=== PATIENT | female | born 1950 | race Caucasian/White ===

== ENCOUNTER 2020-11-02 13:37 | Outpatient (REF) | payer OTHER, SELFPAY ==
--- NOTE | 2020-11-02 13:40 | CT_ITS ---
EXAMINATION: CT CHEST WITHOUT CONTRAST CLINICAL INFORMATION: Pulmonary nodules. COMPARISON: CT chest 05/10/2020. TECHNIQUE: Multidetector volumetric CT imaging of the chest was done. Axial MIP volume rendering provided. Sagittal and coronal reformatted images were obtained. This CT examination was performed using dose optimization techniques as appropriate, variously including the following: *Automated exposure control *Adjustment of mA and/or kV according to patient size (this includes techniques or standardized protocols for targeted exams where dose is matched to indication/reason for exam; i.e. extremities or head) *Use of iterative reconstruction technique DLP: 112 mGy-cm FINDINGS: TEST SPECIALIST: Unremarkable. LUNGS: There is diffuse centrilobular emphysema without acute pneumonic process. There is a 5 mm noncalcified nodule right upper lobe axial image 139/6, a bilobed 6 mm noncalcified nodule right upper lobe axial image 97/6, 2 mm right upper lobe nodule axial image 107/6, 3 mm nodule right upper lobe axial image 133/6 are all stable. There are atelectatic changes right posterior basal and right anterobasal segments. No new nodule seen. MEDIASTINUM: The thyroid lobes are symmetrical and normal. The central trachea and the bronchi are widely patent. There are multiple small benign pretracheal and precarinal lymph nodes with a maximum short axis measurement of 7 mm and less. There is atherosclerotic calcification of thoracic aorta without aneurysmal dilatation. No pericardial effusion seen. PLEURA: There is no pleural effusion. No pleural mass or thickening. AXILLA: No lymphadenopathy. UPPER ABDOMEN: Visualized liver, spleen and pancreas unremarkable. There is a solitary gallstone. OSSEOUS STRUCTURES: No lytic or sclerotic process seen. There is mild spondylosis lumbar spine. CT/CT chest wo con IMPRESSION: Centrilobular emphysema and multiple pulmonary nodules are stable compared to previous CT chest 05/10/2020. No new nodule seen. Gallstone.
== END 2020-11-02 13:38 | disposition home or self-care (01) ==
LOC: HO.CT 13:37
PROVIDERS: PCP Internal Medicine; Visit Provider Internal Medicine Pulmonary Disease
DX: R91.8 Other nonspecific abnormal finding of lung field (principal)
CPT/HCPCS: 71250

== ENCOUNTER → 2020-11-15 10:00 | Outpatient (BNVA) | payer OTHER, SELFPAY | PROVIDERS: PCP Internal Medicine; Visit Provider Internal Medicine Pulmonary Disease | DX: J44.9 Chronic obstructive pulmonary disease, unspecified (principal); R91.8 Other nonspecific abnormal finding of lung field; Z79.899 Other long term (current) drug therapy; Z99.81 Dependence on supplemental oxygen; Z87.891 Personal history of nicotine dependence | CPT/HCPCS: 99212 ==

== ENCOUNTER → 2021-03-08 11:33 | Outpatient (BNVA) | payer OTHER, SELFPAY | PROVIDERS: PCP Internal Medicine; Visit Provider Internal Medicine Pulmonary Disease | DX: J44.9 Chronic obstructive pulmonary disease, unspecified (principal); R91.8 Other nonspecific abnormal finding of lung field; Z99.81 Dependence on supplemental oxygen | CPT/HCPCS: 99212 ==

== ENCOUNTER → 2021-04-12 10:08 | Outpatient (BNVA) | payer OTHER, SELFPAY | PROVIDERS: PCP Internal Medicine; Visit Provider Internal Medicine Pulmonary Disease | DX: J44.9 Chronic obstructive pulmonary disease, unspecified (principal); R91.8 Other nonspecific abnormal finding of lung field; Z99.81 Dependence on supplemental oxygen | CPT/HCPCS: 99212 ==

== ENCOUNTER → 2021-06-18 10:59 | Outpatient (BNVA) | payer OTHER, SELFPAY | PROVIDERS: PCP Internal Medicine; Visit Provider Internal Medicine Pulmonary Disease | DX: J44.9 Chronic obstructive pulmonary disease, unspecified (principal); R91.8 Other nonspecific abnormal finding of lung field; Z99.81 Dependence on supplemental oxygen | CPT/HCPCS: 99212 ==

== ENCOUNTER → 2021-07-30 14:13 | Outpatient (BNVA) | payer MEDICARE, SELFPAY | PROVIDERS: PCP Nurse Practitioner Family; Visit Provider Internal Medicine Pulmonary Disease | DX: J44.9 Chronic obstructive pulmonary disease, unspecified (principal); R91.8 Other nonspecific abnormal finding of lung field; Z99.81 Dependence on supplemental oxygen | CPT/HCPCS: 99212 ==

== ENCOUNTER → 2021-08-13 10:15 | Outpatient (BNVA) | payer MEDICARE, SELFPAY | PROVIDERS: PCP Nurse Practitioner Family; Visit Provider Internal Medicine Pulmonary Disease | DX: R91.8 Other nonspecific abnormal finding of lung field (principal); J44.9 Chronic obstructive pulmonary disease, unspecified; Z99.81 Dependence on supplemental oxygen | CPT/HCPCS: 99212 ==

== ENCOUNTER → 2021-09-17 10:51 | Outpatient (BNVA) | payer MEDICARE, SELFPAY | PROVIDERS: PCP Nurse Practitioner Family; Visit Provider Internal Medicine Pulmonary Disease | DX: J44.9 Chronic obstructive pulmonary disease, unspecified (principal) | CPT/HCPCS: 99211 ==

== ENCOUNTER → 2021-10-17 09:57 | Outpatient (BNVA) | payer MEDICARE, SELFPAY | PROVIDERS: PCP Nurse Practitioner Family; Visit Provider Internal Medicine Pulmonary Disease | DX: J44.9 Chronic obstructive pulmonary disease, unspecified (principal); R91.8 Other nonspecific abnormal finding of lung field; Z99.81 Dependence on supplemental oxygen | CPT/HCPCS: 94618; 99212 ==

== ENCOUNTER 2021-11-15 10:10 | Outpatient (REF) | payer MEDICARE, SELFPAY ==
--- NOTE | ~2021-11-15 | CT_ITS ---
EXAMINATION: CT CHEST WITHOUT CONTRAST CLINICAL INFORMATION: Followup pulmonary nodules. COMPARISON: CT chest 11/02/2020. TECHNIQUE: Multidetector volumetric CT imaging of the chest was done. Axial MIP volume rendering provided. Sagittal and coronal reformatted images were obtained. This CT examination was performed using dose optimization techniques as appropriate, variously including the following: *Automated exposure control *Adjustment of mA and/or kV according to patient size (this includes techniques or standardized protocols for targeted exams where dose is matched to indication/reason for exam; i.e. extremities or head) *Use of iterative reconstruction technique DLP: 114 mGy-cm FINDINGS: AQUACULTURE PROGRAM DIRECTOR: Unremarkable chest exam. LUNGS: There are diffuse emphysematous changes of the lungs without any acute process. Scattered pulmonary nodules are seen. A triangular-shaped 2 mm nodule right lung apex image 53/5, subpleural 2 mm nodule right upper lobe image 48/6, 3 mm pleural-based nodule right upper lobe axial image 108/5, 6 mm nodule right upper lobe medially axial image 100/5. There is a 2 mm pleural-based nodule left upper lobe axial image 147/5, 2 mm nodule left upper lobe axial image 21/4 and a slightly punctate 1 mm nodule laterally at the same level in the left upper lobe. No additional nodules seen. MEDIASTINUM: The thyroid lobes are symmetric and normal. The central trachea and the bronchi are widely patent. The heart size and the great vessels are normal caliber. There are small shotty mediastinal lymph nodes seen. No pericardial effusion. PLEURA: There is no pleural effusion. No pleural mass or thickening. AXILLA: There are small shotty lymph nodes in the axilla with the largest lymph node measuring 8 mm. The chest wall is unremarkable. UPPER ABDOMEN: The visualized liver, spleen, pancreas, and bilateral adrenal glands are unremarkable. OSSEOUS STRUCTURES: Bone windows reveal no lytic or sclerotic process. There are degenerative disc changes and ventral spondylosis throughout the dorsal spine. CT/CT chest wo con IMPRESSION: Stable bilateral several pulmonary nodules. There are no new pulmonary nodules compared to last study 05/10/2020. Fleischner guidelines were followed.
== END 2021-11-15 10:11 | disposition home or self-care (01) ==
LOC: HO.CT 10:10
PROVIDERS: Visit Provider Internal Medicine Pulmonary Disease
DX: R91.8 Other nonspecific abnormal finding of lung field (principal)
CPT/HCPCS: 71250

== ENCOUNTER → 2022-01-28 13:41 | Outpatient (BNVA) | payer OTHER, SELFPAY | PROVIDERS: PCP Nurse Practitioner Family; Visit Provider Internal Medicine Pulmonary Disease | DX: J44.9 Chronic obstructive pulmonary disease, unspecified (principal); R91.8 Other nonspecific abnormal finding of lung field; Z99.81 Dependence on supplemental oxygen | CPT/HCPCS: 99212 ==

== ENCOUNTER → 2022-05-14 14:44 | Outpatient (BNVA) | payer OTHER, SELFPAY | PROVIDERS: PCP Nurse Practitioner Family; Visit Provider Internal Medicine Pulmonary Disease | DX: Z01.811 Encounter for preprocedural respiratory examination (principal); J44.9 Chronic obstructive pulmonary disease, unspecified; Z99.81 Dependence on supplemental oxygen | CPT/HCPCS: 99212 ==

== ENCOUNTER 2022-06-06 07:47 | Outpatient (REF) | payer OTHER, SELFPAY ==
--- NOTE | ~2022-06-06 | XR_ITS ---
EXAMINATION: XR SHOULDER, RIGHT CLINICAL INFORMATION: Pain. COMPARISON: None TECHNIQUE: Two views of the right shoulder. FINDINGS: No fracture or dislocation. The humeral head appears high with respect to the glenoid. Acromioclavicular joint appears slightly widened measuring 9 mm. There is degenerative change at the glenohumeral and acromioclavicular joints. There is a small undersurface acromial osteophyte. XR/XR shoulder RT min 2V IMPRESSION: High humeral head questionable for rotator cuff disease. Arthritis and question slightly widened acromioclavicular joint.
== END 2022-06-06 07:48 | disposition home or self-care (01) ==
LOC: HO.HOSX 07:47
PROVIDERS: Visit Provider Physician Assistant
DX: M12.811 Other specific arthropathies, not elsewhere classified, right shoulder (principal)
CPT/HCPCS: 73030; 99202

== ENCOUNTER → 2022-07-22 10:58 | Outpatient (BNVA) | payer OTHER, SELFPAY | PROVIDERS: PCP Nurse Practitioner Family; Visit Provider Internal Medicine Pulmonary Disease | DX: Z01.811 Encounter for preprocedural respiratory examination (principal); J44.9 Chronic obstructive pulmonary disease, unspecified; R91.8 Other nonspecific abnormal finding of lung field; Z99.81 Dependence on supplemental oxygen | CPT/HCPCS: 99212 ==

== ENCOUNTER 2023-04-21 11:44 | Outpatient (AMB) | payer OTHER, SELFPAY ==
--- NOTE | 2023-04-21 11:50 | MHC.OFFVIS ---
Intake Vital Signs 04/21/23 11:51 Height 5 ft Weight 114 lb 10.246 oz BMI 22.4 BP 138/62 Intake Visit Reasons: COPD Intake Note: ct was denied by insurance Allergies gabapentin [GABAPENTIN] Allergy (Unknown, Verified 04/21/23 11:51) UNKNOWN mirtazapine Allergy (Unknown, Verified 04/21/23 11:51) Unknown penicillin G Allergy (Unknown, Verified 04/21/23 11:51) Unknown pravastatin Allergy (Unknown, Verified 04/21/23 11:51) Unknown quetiapine [Seroquel] Allergy (Unknown, Verified 04/21/23 11:51) Unknown HPI COPD HPI Details 73-year-old lady, recent 55+ pack-year smoker, quit 2019, followed for underlying 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 She continues to use Anoro, albuterol MDI, theophylline 400, and duo nebs with good control of her underlying symptoms.? She denies recent exacerbations.? She is interested in pulmonary rehab. [facility] Medical History (Updated 06/06/22 @ 13:02 by Tristin Mireles PA-C) Fibromyalgia High blood pressure Stomach problems Surgical History (Updated 06/06/22 @ 11:08 by CLARY Barahona) H/O pelvic surgery History of shoulder surgery Social History (Updated 06/06/22 @ 11:07 by CLARY Barahona) Patient Tobacco Use Status: Former Tobacco user Years Smoked: 45 yrs Current occupational status: retired Review of Systems Const Denies daytime sleepiness, Denies excessive sweating, Denies fatigue, Denies fever(s), Denies lethargy, Denies malaise, Denies night sweats, Denies snoring and Denies weight loss Eyes Denies blurry vision and Denies itchy eyes ENT Denies nasal congestion, Denies post nasal drip, Denies sinus pain, Denies sinus pressure and Denies other ( Thrush) Card Denies chest pain, Denies pedal edema, Denies dyspnea, Denies orthopnea and Denies paroxysmal nocturnal dyspnea Resp Denies cough, Denies hemoptysis, Denies excessive phlegm production, Denies dyspnea, Denies snoring and Denies wheezing GI Denies abdominal pain and Denies heartburn Musc Denies myalgias, Denies arthralgias and Denies joint swelling Skin/Breast Denies rash Neuro Denies memory loss and Denies seizure-like activity Psych Denies abnormal sleep pattern, Denies anxiety and Denies memory loss Endo Denies excessive sweating, Denies fatigue and Denies heat intolerance Clement/Lymph Denies easy bruising Aller/Immun Denies itchy eyes, Denies seasonal rhinorrhea and Denies wheezing Physical Exam Vital Signs: Last Vital Signs BP 138/62 04/21/23 11:51 BMI result Body Mass Index 22.4 Const General: no acute distress and alert Nutritional Appearance: not obese Orientation/consciousness: Other orientation findings ( oriented) HEENT Head: Yes atraumatic Eyes General: appearance normal, both eyes and all related structures Sclerae: sclerae normal EOM: EOMs intact bilaterally Neck Neck: Yes supple Lymphatic: no lymphadenopathy noted Resp Effort & Inspection: normal respiratory effort and no use of accessory muscles Auscultation: clear to auscultation bilaterally Cardio Rate: regular rate Rhythm: regular rhythm Heart sounds: no gallops, no murmurs and no rubs Skin General skin exam: other ( warm) Extrem General: No clubbing, No cyanosis and No edema Assessment & Plan Assessment & Plan (1) Severe chronic obstructive pulmonary disease: Code(s): J44.9 - Chronic obstructive pulmonary disease, unspecified Plan: Reasonably well controlled on current regimen of Anoro, duo nebs, and albuterol MDI. Continue current regimen. Restart theophylline. Will obtain new PFT and referred to Pulmonary Rehab. (2) Supplemental oxygen dependent: Code(s): Z99.81 - Dependence on supplemental oxygen Plan: Continue supplemental oxygen to maintain O2 saturation of 88-93%. (3) Pulmonary nodules: Code(s): R91.8 - Other nonspecific abnormal finding of lung field Plan: Follow-up CT chest is ordered. Orders: Orders PFT pulmonary function test Today J44.9 - Chronic obstructive pulmonary disease, unspecified Pulmonary Rehab Today J44.9 - Chronic obstructive pulmonary disease, unspecified Medications: Changed From umeclidinium-vilanterol 62.5-25 mcg/actuation 1 ea PO DAILY J44.9 - Chronic obstructive pulmonary disease, unspecified To umeclidinium-vilanterol 62.5-25 mcg/actuation 1 ea PO DAILY 1 ea 6RF 30 days J44.9 - Chronic obstructive pulmonary disease, unspecified Refilled theophylline ER 400 mg PO DAILY 30 tabs 6RF J44.9 - Chronic obstructive pulmonary disease, unspecified ipratropium-albuterol 0.5 mg-3 mg(2.5 mg base)/3 mL 3 mL inhalation Q6H PRN 360 mL 6RF for wheezing J44.9 - Chronic obstructive pulmonary disease, unspecified Coding Level of Care Code Est Pt Level 4 (24221) Diagnoses Severe chronic obstructive pulmonary disease J44.9 Supplemental oxygen dependent Z99.81 Pulmonary nodules R91.8
[2023-04-21 11:51] VITALS: BP 138/62; BMI 22.4
== END 2023-04-21 12:10 | disposition home or self-care (01) ==
PROVIDERS: PCP Nurse Practitioner Family; Visit Provider Internal Medicine Pulmonary Disease
DX: J44.9 Chronic obstructive pulmonary disease, unspecified (principal); Z99.81 Dependence on supplemental oxygen; R91.8 Other nonspecific abnormal finding of lung field
CPT/HCPCS: 99214

== ENCOUNTER → 2023-04-21 11:44 | Outpatient (BNVA) | payer OTHER, SELFPAY | PROVIDERS: Visit Provider Internal Medicine Pulmonary Disease | DX: J44.9 Chronic obstructive pulmonary disease, unspecified (principal); R91.8 Other nonspecific abnormal finding of lung field; Z79.899 Other long term (current) drug therapy; Z99.81 Dependence on supplemental oxygen | CPT/HCPCS: 99212 ==

== ENCOUNTER 2023-05-11 09:27 | Outpatient (REF) | payer OTHER, SELFPAY ==
--- NOTE | 2023-05-11 11:15 | PFT_ITS ---
INDICATION: COPD and pulmonary nodule. SPIROMETRY: The FEV1 to FVC of 51% with an FEV1 of 1.07 L which is 67% predicted and FVC of 2.1 L which is 84% predicted. No significant response to bronchodilators noted. Maximum voluntary ventilation 47% predicted. LUNG VOLUMES: Total lung capacity 101% predicted with a residual volume 119% predicted. DIFFUSION CAPACITY: DLCO of 56% predicted. COMPARISONS: None. INTERPRETATION: There is an obstructive ventilatory defect consistent with mild COPD. No significant response to bronchodilators noted. Moderate decrease in maximum voluntary ventilation secondary to deconditioning, also likely worsening dynamic inspiratory capacity. Lung volumes were the trend of air trapping secondary to the COPD and does also have moderate diffusion impairment secondary to likely emphysematous changes and other parenchymal lung conditions should be considered. Should also correct for hemoglobin. Clinical correlation warranted. MD SIOMARA Cao/MODAbena / [phone]
== END 2023-05-11 09:28 | disposition home or self-care (01) ==
LOC: HO.RESP 09:27
PROVIDERS: PCP Nurse Practitioner Family; Visit Provider Internal Medicine Pulmonary Disease
DX: J44.9 Chronic obstructive pulmonary disease, unspecified (principal)
CPT/HCPCS: 94010; 94727; 94729

== ENCOUNTER → 2023-05-11 11:15 | Outpatient (BNV) | payer OTHER, SELFPAY | PROVIDERS: PCP Nurse Practitioner Family; Visit Provider Hospitalist | DX: J44.9 Chronic obstructive pulmonary disease, unspecified (principal); R91.1 Solitary pulmonary nodule | CPT/HCPCS: 94060; 94727; 94729 ==

== ENCOUNTER 2023-07-06 10:03 | Outpatient (RCR) | payer OTHER, SELFPAY ==
[2023-07-06 10:35] VITALS: BP 124/64; PULSE 83
--- NOTE | 2023-07-06 14:00 | MHC.PR.IN ---
[address] [phone] F: [phone] Pulmonary Rehabilitation Individual Treatment Plan Sarah Newby is a 73 year old (F) who was referred to the Pulmonary Rehabilitation program by Emilio Toledo. This patient who has a primary diagnosis of COPD will begin pulmonary rehabilitation with monitored exercise and education to optimize both physical and social performance, autonomy, increase strength and endurance, and control dypsnea. The following information was gathered from the patient: Smoking History Current smoking status: Former Smoker Years smoked: 35 Last time smoked: Quit Date: 1 year ago Assistance with quitting needed: Past Medical History Medical History: Hypertension COPD Asthma Bronchitis Depression Anxiety Surgeries: Past Pulmonary Hospitalizations # of hospitalizations in the past year: # of ER vists due to breathing troubles in the past year: Current Pulmonary Medications albuterol neb Anora albuterol mdi 2 puffs Euthyrox 25 acetaminophen 500 atorvastatin amlodipine 5 pantobrazole 40 levothryroxin 125 pramipexole .5 theophylline Allergy History Allergies: Current Oxygen Use Supplemental Oxygen Device Used: Concentrator Cylinders Liter flow: 4-5Lpm How often: Only when I need it Pulmonary History Cough: No Sputum: Sleep device: No Other pulmonary devices: Peak flow meter: Nebulizer: Suction: Ventilator: Secretion clearance: PEP: Influenza vaccine: No: will do this year. Pneumonia vaccine: Patient Questionaire Scores MRC Dyspnea Scale (mRC): 0 CAT Score: 4 PHQ-9 Score: 0 Pulmonary Function Test and Vital Signs Pulmonary Function Test Date of PFT FVC Actual 2.10% FVC Predicted 2.48% FEV1 Actual 1.04% FEV1 Predicted 1.86% FEV1/FVC Actual 51% FEV1/FVC Predicted 76% DLCO 10.58 Vital Signs Heart Rate 83 Blood Pressure 124/64 SpO2 95% Respiratory Rate 18 Six Minute Walk Test Supplemental Oxygen O2 L/min: 2lpm FiO2: Resting Vitals SpO2: 94% BP: 124/64mmHg HR: 81 bpm Total Distance 1050 Number/ Time of Rests (sec) 1 15 seconds MARA 0 METS 2.45 SpO2 85 HR (bpm) 87 MPH 1.89 Meters/Minute 50 Post-walk Vitals SpO2: 94 BP: 122/64 HR: 89 Performance Observations Pt walked unassisted at a moderate pace. Pt started testing on RA at minute 3 sp02 dropped to 85%. Pt was placed on 1l then 2L to maintain spo2 >89. Pt continued walk at a moderate pace on 2lpm. RPD 0 Pulmonary Rehabilitation Plan Topic Problem Goal Plan Comment Education Knowledge deficit of disease self management strategies Ineffective control of dyspnea Verbalize adequate disease self-management skills Effective control of dyspnea Exacerbation prevention and management Home exercise program Respiratory medication Education initiated and ongoing. Hypoxia Hypoxemia Needs oxygen recommendation SpO2 >90 Appropriate portable oxygen system obtained Using oxygen as ordered Monitor oxygen saturation with rest and exercise Recommend appropriate liter flow to patient and physician Educate appropriate use of oxygen at rest and with activity Educate on oxygen safety Pt walked on RA. After 3 minutes sp02 85%. Pt placed on 2lpm for exercise. Psychosocial Depression Adequate treatment of depression Referral to MD for counseling Verbalizes improved psychosocial coping strategies & mechanisms Review screening results Benefits of exercise Relaxation techniques Coping techniques Stress management On medications currently Receiving counseling Recommend counseling Recommend f/u with MD for possible meds Activities of Daily Living Nutrition & Weight Management N/A met Tobacco Managment Difficulty remaining smoke free Ongoing tobacco use NA Patient verbalizes strategies to improve health related to smoking Dangers of smoking Benefits of quitting Triggers Coping strategies Withdrawal symptoms Assist with identifying aids to assist w/ cessation Discuss appropriate pharmacotherapy for cessation & MD follow-up Pt has 30 year pack hx. Pt stopped smoking 20 years ago Medication N/A, pt reports compliance w/ prescribed medications Adherence to prescribed medications Importance of medication compliance Medications purpose Will educate and review education on current respiratory meds and proper use. Inhaled Medication Purpose, side effects and technique needs review Correct technique/timing and care of inhaled medications Demo of MDI with spacer device DPI MDI with spacer device Nebulizer SMI Plan to teach/demonstrate and educate on respiratory meds. Secretion Management Ineffective airway clearance Pt has effective cough. Education initiated and on going on earl cough and breathing techniques. Exercise & Fitness Decreased strength & endurance Knowledge deficit of exercise guidelines & safety No regular exercise Pulmonary Rehab 2-3x/week Weight or resistance training 2-3x/week Aerobic Exercise: 30-60mins x 9 weeks Review benefits & core components of exercise program Review how to measure and monitor dyspnea level Review exercise safety guidelines Review frequency and duration of exercise Review exercise intensity MARA RPD 3-4/10 Review home exercise guidelines Diabetes Management Does patient have DM?: No Diabetes Type: Current Blood Glucose Level: Current A1C Level: Self Check: Pt is not a diabetic Patient's Goals and Concerns Pt states her goal from pulmonary rehab would be to walk uphill without losing her breath. . Ecommerce Manager Review I have reviewed the outcome assessment, treatment plan, goals, and problem list. The treatment plan and goals support the patient's needs and abilities, and thereby recommend that the exercise plan be completed as documented. Special precautions or modifications to the treatment plan include:
--- NOTE | 2023-08-12 07:13 | MHC.PR.DC ---
[address] [phone] F: [phone] Pulmonary Rehabilitation Discharge Sarah Newby is a 73 year old (F) who was referred to the Pulmonary Rehabilitation program by Emilio Toledo. This patient who has a primary diagnosis of COPD has completed sessions of the pulmonary rehabilitation program with monitored exercise and education to optimize both physical and social performance, autonomy, increase strength and endurance, and control dypsnea. They were evaluated on . Discharge summary and tests are below. Initial MRC Score: 0 Discharge MRC Score: Six Minute Walk Test Initial 6MWT Discharge 6MWT Supplemental Oxygen O2 L/min: 2lpm FiO2: O2 L/min: FiO2: Resting Vitals SpO2: 94% BP: 124/64mmHg HR: 81 bpm SpO2: % BP: mmHg HR: bpm Total Distance (ft) 1050 Number/ Time of Rests (sec) 1 15 seconds MARA 0 Walk Vitals SpO2: 85 HR: 87 SpO2: HR: Post-Walk Vitals SpO2: 94 BP: 122/64 HR: 89 SpO2: BP: HR: Performance Observations Pt walked unassisted at a moderate pace. Pt started testing on RA at minute 3 sp02 dropped to 85%. Pt was placed on 1l then 2L to maintain spo2 >89. Pt continued walk at a moderate pace on 2lpm. RPD 0 Exercise Assessment on : Pre-exercise Post-exercise SpO2 Heart Rate MARA METS Exercise Assessment on : Pre-exercise Post-exercise SpO2 Heart Rate MARA METS Exercise Assessment on : Pre-exercise Post-exercise SpO2 Heart Rate MARA METS Topic Education/Progress Progress Comments Education Hypoxia Current oxygen Use: Psychosocial PHQ-9 Score: 0 Activities of Daily Living Nutrition and Weight Managment Current weight: 114 BMI: Weight change: Tobacco Stages of Change: Tobacco Use: Cigerettes/Day: Any nicotine replacement: Any cessation medication: Smoking quit date: Smokeless tobacco use and amount: Medications Inhaled Medications Patient verbalizes correct technique of: MDI: DPI: SMI: NEBULIZER: Secretion Management Patient provides adequate return demonstration of: Controlled cough: Pozo cough: Acapella/ PEP Device: CPT: Sputum management: Exercise and Fitness Aerobic Exercise Frequency: Target heart range: Heart rate range: SpO2 Range: MARA RPD: Time (minutes): O2 use with exercise: Current HEP: Discharge Assessment: pt never participated in rehab Discharge Reason: Discharge Recommendation: :
== END 2023-08-12 07:13 | disposition home or self-care (01) ==
LOC: HO.PR 10:03
PROVIDERS: PCP Nurse Practitioner Family; Visit Provider Internal Medicine Pulmonary Disease
DX: J44.9 Chronic obstructive pulmonary disease, unspecified (principal)
CPT/HCPCS: 94625

== ENCOUNTER 2023-10-13 10:13 | Outpatient (AMB) | payer OTHER, SELFPAY ==
--- NOTE | 2023-10-13 10:07 | A.OFFVIS_ITS ---
Intake Vital Signs 10/13/23 10:20 Height 4 ft 11 in Weight 132 lb BMI 26.7 BP 136/70 Blood Pressure Location Rt brachial Pulse 101 H Pulse Source Pulse Oximeter Pulse Oximetry (%) 97 Oxygen Delivery Method Nasal Cannula Oxygen Flow Rate 3 Intake Visit Reasons: Recert o2/COPD Dock Guard Required: No Family Court Counsellor: Family Court Counsellor offered & declined Accompanied by: Self / Same As Patient Allergies gabapentin [GABAPENTIN] Allergy (Unknown, Verified 10/13/23 10:27) UNKNOWN mirtazapine Allergy (Unknown, Verified 10/13/23 10:27) Unknown penicillin G Allergy (Unknown, Verified 10/13/23 10:27) Unknown pravastatin Allergy (Unknown, Verified 10/13/23 10:27) Unknown quetiapine [Seroquel] Allergy (Unknown, Verified 10/13/23 10:27) Unknown Medication List - Last Reconciled 10/13/23 by Tessa Pritchett LPN acetaminophen 0 mg PO albuterol sulfate 90 mcg/actuation (Ventolin HFA) 2 puffs inhalation QID PRN amlodipine 5 mg PO DAILY atorvastatin 80 mg PO .every 48 clopidogrel 75 mg PO DAILY ipratropium-albuterol 0.5 mg-3 mg(2.5 mg base)/3 mL 3 mL inhalation Q6H PRN levothyroxine (Euthyrox) 0 mcg PO pramipexole 0 mg PO theophylline ER 400 mg PO DAILY umeclidinium-vilanterol 62.5-25 mcg/actuation 1 ea PO DAILY 30 days HPI Recert o2/COPD HPI Details Sarah is a pleasant 73 year old female, recent 55+ pack-year smoker, quit 2018, followed for underlying 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She is moderately controlled on Anoro, albuterol MDI, theophylline 400, and duo nebs. She reports using albuterol MDI/Duonebs 3-4 times per week with good effect.? She denies recent exacerbations.? She has attempted pulmonary rehab one time but is not interested in continuing. Today she presents for recertification for supplemental oxygen through [facility]. [facility] Medical History (Updated 06/06/22 @ 13:02 by Tristin Mireles PA-C) Fibromyalgia High blood pressure Stomach problems Surgical History (Updated 06/06/22 @ 11:08 by CLARY Barahona) History of shoulder surgery H/O pelvic surgery Social History (Updated 10/13/23 @ 10:30 by Tessa Pritchett LPN) Household Members: Family Household Members Other:: Son Patient Tobacco Use Status: Former Tobacco user Years Smoked: 35 Current occupational status: retired Review of Systems Const Denies chills, Denies excessive sweating, Denies fever(s), Denies headache(s) and Denies night sweats Eyes Denies dry eyes, Denies irritation and Denies itchy eyes ENT Reports Normal hearing present, Denies headache(s), Denies nasal congestion, Denies nasal discharge, Denies post nasal drip and Denies sore throat Card Denies chest pain, Denies chest pain at rest, Denies chest pain with activity, Denies claudication and Denies leg edema Resp Denies chest congestion, Denies excessive phlegm production, Denies pain on inspiration, Denies pain with cough and Denies stridor Musc Denies myalgias Neuro Reports Normal hearing present and Denies headache(s) Endo Denies excessive sweating Clement/Lymph Denies lymphadenopathy Aller/Immun Denies itchy eyes and Denies seasonal rhinorrhea Physical Exam Vital Signs: Last Vital Signs Pulse 101 H 10/13/23 10:20 BP 136/70 10/13/23 10:20 Pulse Ox 97 10/13/23 10:20 Oxygen Delivery Method Nasal Cannula 10/13/23 10:20 Oxygen Flow Rate 3 10/13/23 10:20 BMI result Body Mass Index 26.7 Const General: cooperative, comfortable, no acute distress, well developed and alert Orientation/consciousness: patient oriented x3 Limitations: no limitations HEENT Head: Yes normal to inspection, Yes normocephalic and Yes atraumatic Ears: hearing grossly normal bilaterally and external ears normal Eyes General: appearance normal, both eyes and all related structures Eyelids: Yes eyelids normal Sclerae: sclerae normal EOM: EOMs intact bilaterally Neck Neck: Yes normal visual inspection and Yes no lymphadenopathy Lymphatic: no lymphadenopathy noted Chest Chest palpation & inspection: normal inspection of the chest Resp Effort & Inspection: normal respiratory effort, able to speak in complete sentences, no audible wheezes, no cough, no stridor, not tachypneic, no tripod positioning and no use of accessory muscles Auscultation: wheezes expiratory wheezes and scattered wheezes Cardio Jugular venous distension: no JVD Rate: regular rate Rhythm: regular rhythm Skin Other: warm, dry General skin exam: no rashes or lesions noted Neuro General: patient oriented x3 Cranial nerves: Yes Normal hearing present Cognition (Neuro): normal cognition Gait exam (Neuro): Normal gait present Extrem General: Yes normal to inspection and Yes no pedal edema Psych Appearance: grossly normal and well kempt Speech and movement: Normal speech and movement present and Clear speech present Affect: normal affect Attitude: cooperative Thought process: Normal thought process present Thought content: Normal thought content present Insight: Good insight present (Psych) Judgement: Good judgement present (Psych) Office Procedures 6 Minute Walk Time:: 10:40 SPO2 % at rest: 95 Pulse at rest: 96 SPO2 % during excercise: 87 Pulse during excercise: 108 SPO2 % after excercise: 97 Pulse after excercise: 102 Distance in yards walked: 1,000 Kurt Score: 7 Supplemental Oxygen: Performance Observations:: Patient walked unassisted on level ground without oxygen. After approx 500 yards O2 saturation decreased to 87%. O2 pulsed applied at #3 and patient rested for approx 1 minute. O2 saturation increased to 94%. 6 minute walk completed with O2 on. Patient maintained O2 sat at 94%. Patient notes she does get short of breath with distance walking and uses O2 much of the time including overnight. Patient benefits from the use of supplemental O2. [id number] - 6 Minute Walk Assessment & Plan Assessment & Plan (1) Severe chronic obstructive pulmonary disease: Code(s): J44.9 - Chronic obstructive pulmonary disease, unspecified (2) Supplemental oxygen dependent: Code(s): Z99.81 - Dependence on supplemental oxygen Plan: Continue supplemental oxygen to maintain O2 saturation of 88-93%. (3) Pulmonary nodules: Code(s): R91.8 - Other nonspecific abnormal finding of lung field Plan Advised patient to continue current regimen. On exam, expiratory wheezing appreciated throughout. Will send in prednisone. Patient aware if symptoms do not change to call the office and if worsen seek emergent care. 6MWT performed, desaturated to 87% and patient continues to require 2-3 L pulsed supplemental oxygen. Will send recertification to [facility]. All questions were answered and patient is in agreement of plan. Will follow up with Dr. Toledo for regularly scheduled appointment or sooner if needed. Orders: Orders AMB 6 minute walk Today J44.9 - Chronic obstructive pulmonary disease, unspecified Medications: New prednisone 40 mg (2 x 20 mg) PO DAILY 10 tabs 0RF Coding Level of Care Code Est Pt Level 4 (08949) Diagnoses Severe chronic obstructive pulmonary disease J44.9 Supplemental oxygen dependent Z99.81 Pulmonary nodules R91.8 CPT Codes Coding ([id number])
[2023-10-13 10:20] VITALS: BP 136/70; PULSE 101; O2SAT 97; BMI 26.7
[2023-10-13 13:03] VITALS: PULSE 96; O2SAT 95
== END 2023-10-13 10:52 | disposition home or self-care (01) ==
PROVIDERS: PCP Nurse Practitioner Family; Visit Provider Nurse Practitioner Family
DX: J44.9 Chronic obstructive pulmonary disease, unspecified (principal); Z99.81 Dependence on supplemental oxygen; R91.8 Other nonspecific abnormal finding of lung field
CPT/HCPCS: 94618; 99214

== ENCOUNTER → 2023-10-13 10:13 | Outpatient (BNVA) | payer OTHER, SELFPAY | PROVIDERS: PCP Nurse Practitioner Family; Visit Provider Nurse Practitioner Family | DX: J44.9 Chronic obstructive pulmonary disease, unspecified (principal); R91.8 Other nonspecific abnormal finding of lung field; Z99.81 Dependence on supplemental oxygen | CPT/HCPCS: 94618; 99212 ==

== ENCOUNTER 2023-11-09 07:13 | Outpatient (REF) | payer OTHER, SELFPAY | END 2023-11-09 07:14 | disposition home or self-care (01) | LOC: HO.HOSX 07:13 | PROVIDERS: Visit Provider Orthopaedic Surgery | DX: Z13.89 Encounter for screening for other disorder (principal) ==

== ENCOUNTER 2023-12-23 10:34 | Outpatient (AMB) | payer OTHER, SELFPAY ==
[2023-12-23 10:37] VITALS: BP 142/84; PULSE 105; O2SAT 96; BMI 26.5
--- NOTE | 2023-12-23 10:37 | MHC.OFFVIS ---
Intake Vital Signs 12/23/23 10:37 Height 4 ft 11 in Weight 131 lb 2.801 oz BMI 26.5 BP 142/84 H Blood Pressure Location Rt brachial Position Sitting Pulse 105 H Pulse Source Doppler Pulse Oximetry (%) 96 Oxygen Delivery Method Room Air Intake Visit Reasons: 3 month f/u Allergies gabapentin [GABAPENTIN] Allergy (Unknown, Verified 12/23/23 10:41) UNKNOWN mirtazapine Allergy (Unknown, Verified 12/23/23 10:41) Unknown penicillin G Allergy (Unknown, Verified 12/23/23 10:41) Unknown pravastatin Allergy (Unknown, Verified 12/23/23 10:41) Unknown quetiapine [Seroquel] Allergy (Unknown, Verified 12/23/23 10:41) Unknown HPI 3 month f/u HPI Details 73-year-old lady, recent 55+ pack-year smoker, quit 2019, followed for underlying 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 She continues to use Anoro, albuterol MDI, theophylline 400, and duo nebs with good control of her underlying symptoms.? She denies recent exacerbations. She tried pulmonary rehab but did not like it. Patient did not complete her follow-up CT chest. Her follow-up PFT shows FEV1 around 55% of predicted. [facility] Medical History (Updated 06/06/22 @ 13:02 by Tristin Mireles PA-C) Fibromyalgia High blood pressure Stomach problems Surgical History (Updated 06/06/22 @ 11:08 by Jovanna Thurman [facility]) History of shoulder surgery H/O pelvic surgery Social History Household Members: Family Household Members Other:: Son Patient Tobacco Use Status: Former Tobacco user Years Smoked: 35 Current occupational status: retired Review of Systems Const Denies daytime sleepiness, Denies excessive sweating, Denies fatigue, Denies fever(s), Denies lethargy, Denies malaise, Denies night sweats, Denies snoring and Denies weight loss Eyes Denies blurry vision and Denies itchy eyes ENT Denies nasal congestion, Denies post nasal drip, Denies sinus pain, Denies sinus pressure and Denies other ( Thrush) Card Denies chest pain, Denies pedal edema, Denies dyspnea, Denies orthopnea and Denies paroxysmal nocturnal dyspnea Resp Denies cough, Denies hemoptysis, Denies excessive phlegm production, Denies dyspnea, Denies snoring and Denies wheezing GI Denies abdominal pain and Denies heartburn Musc Denies myalgias, Denies arthralgias and Denies joint swelling Skin/Breast Denies rash Neuro Denies memory loss and Denies seizure-like activity Psych Denies abnormal sleep pattern, Denies anxiety and Denies memory loss Endo Denies excessive sweating, Denies fatigue and Denies heat intolerance Clement/Lymph Denies easy bruising Aller/Immun Denies itchy eyes, Denies seasonal rhinorrhea and Denies wheezing Physical Exam Vital Signs: Last Vital Signs Pulse 105 H 12/23/23 10:37 BP 142/84 H 12/23/23 10:37 Pulse Ox 96 12/23/23 10:37 Oxygen Delivery Method Room Air 12/23/23 10:37 BMI result Body Mass Index 26.5 Const General: no acute distress and alert Nutritional Appearance: not obese Orientation/consciousness: Other orientation findings ( oriented) HEENT Head: Yes atraumatic Eyes General: appearance normal, both eyes and all related structures Sclerae: sclerae normal EOM: EOMs intact bilaterally Neck Neck: Yes supple Lymphatic: no lymphadenopathy noted Resp Effort & Inspection: normal respiratory effort and no use of accessory muscles Auscultation: clear to auscultation bilaterally Cardio Rate: regular rate Rhythm: regular rhythm Heart sounds: no gallops, no murmurs and no rubs Skin General skin exam: other ( warm) Extrem General: No clubbing, No cyanosis and No edema Assessment & Plan Assessment & Plan (1) Severe chronic obstructive pulmonary disease: Code(s): J44.9 - Chronic obstructive pulmonary disease, unspecified Plan: Controlled on Anoro, albuterol MDI, duo nebs, and theophylline. Continue current regimen. (2) Supplemental oxygen dependent: Code(s): Z99.81 - Dependence on supplemental oxygen Plan: Continue supplemental oxygen to maintain O2 saturation of 88-92%. (3) Pulmonary nodules: Code(s): R91.8 - Other nonspecific abnormal finding of lung field Plan: Follow-up CT chest reordered. Coding Level of Care Code Est Pt Level 4 (23875) Diagnoses Severe chronic obstructive pulmonary disease J44.9 Supplemental oxygen dependent Z99.81 Pulmonary nodules R91.8
== END 2023-12-23 10:54 | disposition home or self-care (01) ==
PROVIDERS: PCP Nurse Practitioner Family; Visit Provider Internal Medicine Pulmonary Disease
DX: J44.9 Chronic obstructive pulmonary disease, unspecified (principal); Z99.81 Dependence on supplemental oxygen; R91.8 Other nonspecific abnormal finding of lung field
CPT/HCPCS: 99214

== ENCOUNTER → 2023-12-23 10:34 | Outpatient (BNVA) | payer OTHER, SELFPAY | PROVIDERS: PCP Nurse Practitioner Family; Visit Provider Internal Medicine Pulmonary Disease | DX: J44.9 Chronic obstructive pulmonary disease, unspecified (principal); R91.8 Other nonspecific abnormal finding of lung field; Z99.81 Dependence on supplemental oxygen; Z87.891 Personal history of nicotine dependence | CPT/HCPCS: 99212 ==

== ENCOUNTER 2024-02-10 10:29 | Outpatient (REF) | payer OTHER, SELFPAY ==
--- NOTE | ~2024-02-10 | CT_ITS ---
EXAMINATION: CT CHEST WITHOUT CONTRAST CLINICAL INFORMATION: Pulmonary nodules COMPARISON: 11/15/2021 TECHNIQUE: Multidetector volumetric CT imaging of the chest was done. Axial MIP volume rendering provided. Sagittal and coronal reformatted images were obtained. This CT examination was performed using dose optimization techniques as appropriate, variously including the following: *Automated exposure control *Adjustment of mA and/or kV according to patient size (this includes techniques or standardized protocols for targeted exams where dose is matched to indication/reason for exam; i.e. extremities or head) *Use of iterative reconstruction technique DLP: 107 mGy-cm FINDINGS: LUNGS: Moderate emphysema. Right upper lobe 5 mm nodule is unchanged. Additional scattered sub-3 mm bilateral pulmonary nodules are unchanged. No definite new or enlarging pulmonary nodule. Right lung base linear scarring versus atelectasis. PLEURA: No pleural effusion. MEDIASTINUM: No cardiomegaly. Aorta and pulmonary artery are normal in caliber. No mediastinal adenopathy. Lack of IV contrast with evaluation for hilar adenopathy. CORONARY ARTERY CALCIFICATION: Coronary artery calcifications are present. CHEST WALL/AXILLA: No axillary or internal mammary lymphadenopathy. UPPER ABDOMEN: Small hiatal hernia. OSSEOUS STRUCTURES: Right shoulder arthroplasty. Degenerative changes of the spine. CT/CT chest wo IV con IMPRESSION: Bilateral pulmonary nodules measuring up to 5 mm are unchanged. No definite new or enlarging pulmonary nodule. According to the UPDATED 2017 Fleischner Society recommendations, the advised followup imaging for solid nodules < 6 mm is: LOW RISK PATIENT: No routine follow up. HIGH RISK PATIENT: Optional CT at 12 months.
== END 2024-02-10 10:30 | disposition home or self-care (01) ==
LOC: HO.CT 10:29
PROVIDERS: PCP Nurse Practitioner Family; Visit Provider Internal Medicine Pulmonary Disease
DX: R91.8 Other nonspecific abnormal finding of lung field (principal)
CPT/HCPCS: 71250

== ENCOUNTER 2024-04-08 15:04 | Outpatient (AMB) | payer OTHER, SELFPAY ==
[2024-04-08 15:08] VITALS: BP 138/82; PULSE 123; O2SAT 97; BMI 28.9
--- NOTE | 2024-04-08 15:08 | MHC.OFFVIS ---
Vital Signs 04/08/24 15:08 Height 4 ft 11 in Weight 143 lb 4.807 oz BMI 28.9 BP 138/82 Blood Pressure Location Rt brachial Position Sitting Pulse 123 H Pulse Source Doppler Pulse Oximetry (%) 97 Oxygen Delivery Method Nasal Cannula Oxygen Flow Rate 3 Intake Visit Reasons: COPD/Pulmonary Nodules Allergies gabapentin [GABAPENTIN] Allergy (Unknown, Verified 12/23/23 10:41) UNKNOWN mirtazapine Allergy (Unknown, Verified 12/23/23 10:41) Unknown penicillin G Allergy (Unknown, Verified 12/23/23 10:41) Unknown pravastatin Allergy (Unknown, Verified 12/23/23 10:41) Unknown quetiapine [Seroquel] Allergy (Unknown, Verified 12/23/23 10:41) Unknown HPI HPI COPD/Pulmonary Nodules: Details: 74-year-old lady, recent 55+ pack-year smoker, quit 2019, followed for underlying 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 She continues to use Anoro, albuterol MDI, theophylline 400, and duo nebs with good control of her underlying symptoms until the weather became hot and humid and now she has worsening symptoms. Her follow-up CT chest showed stable pulmonary nodules.? She denies recent exacerbations. She tried pulmonary rehab but did not like it. Patient did not complete her follow-up CT chest. Her follow-up PFT shows FEV1 around 55% of predicted. [facility] Medical History (Updated 06/06/22 @ 13:02 by Tristin Mireles PA-C) Fibromyalgia High blood pressure Stomach problems Surgical History (Updated 06/06/22 @ 11:08 by Jovanna Thurman [facility]) History of shoulder surgery H/O pelvic surgery Social History (Reviewed 12/23/23 @ 10:42 by Laxmi Tomas [facility]) Household Members: Family Household Members Other:: Son Patient Tobacco Use Status: Former Tobacco user Years Smoked: 35 Current occupational status: retired Review of Systems Const Denies daytime sleepiness, Denies excessive sweating, Denies fatigue, Denies fever(s), Denies lethargy, Denies malaise, Denies night sweats, Denies snoring and Denies weight loss Eyes Denies blurry vision and Denies itchy eyes ENT Denies nasal congestion, Denies post nasal drip, Denies sinus pain, Denies sinus pressure and Denies other ( Thrush) Card Denies chest pain, Denies pedal edema, Denies dyspnea, Denies orthopnea and Denies paroxysmal nocturnal dyspnea Resp Denies cough, Denies hemoptysis, Denies excessive phlegm production, Denies dyspnea, Denies snoring and Denies wheezing GI Denies abdominal pain and Denies heartburn Musc Denies myalgias, Denies arthralgias and Denies joint swelling Skin/Breast Denies rash Neuro Denies memory loss and Denies seizure-like activity Psych Denies abnormal sleep pattern, Denies anxiety and Denies memory loss Endo Denies excessive sweating, Denies fatigue and Denies heat intolerance Clement/Lymph Denies easy bruising Aller/Immun Denies itchy eyes, Denies seasonal rhinorrhea and Denies wheezing Physical Exam Vital Signs: Last Vital Signs Pulse 123 H 04/08/24 15:08 BP 138/82 04/08/24 15:08 Pulse Ox 97 04/08/24 15:08 Oxygen Delivery Method Nasal Cannula 04/08/24 15:08 Oxygen Flow Rate 3 04/08/24 15:08 BMI result Body Mass Index 28.9 Const General: no acute distress and alert Nutritional Appearance: not obese Orientation/consciousness: Other orientation findings ( oriented) HEENT Head: Yes atraumatic Eyes General: appearance normal, both eyes and all related structures Sclerae: sclerae normal EOM: EOMs intact bilaterally Neck Neck: Yes supple Lymphatic: no lymphadenopathy noted Resp Effort & Inspection: normal respiratory effort and no use of accessory muscles Auscultation: clear to auscultation bilaterally Cardio Rate: regular rate Rhythm: regular rhythm Heart sounds: no gallops, no murmurs and no rubs Skin General skin exam: other ( warm) Extrem General: No clubbing, No cyanosis and No edema Assessment & Plan Assessment & Plan (1) Severe chronic obstructive pulmonary disease: Code(s): J44.9 - Chronic obstructive pulmonary disease, unspecified Category: Medical Plan: Underlying moderate to severe COPD previously with reasonable control on Anoro, duo nebs, and albuterol MDI, now worsening symptoms in hold/humid weather, will switch Anoro to Trelegy. Continue albuterol MDI/duo nebs. (2) Supplemental oxygen dependent: Code(s): Z99.81 - Dependence on supplemental oxygen Category: Medical Plan: 6 minutes walk test/restrictive vacation for supplemental oxygen performed. Patient continues to require supplemental oxygen at 2 L pulsed flow with exertion. Updated order placed with [facility]. (3) Pulmonary nodules: Code(s): R91.8 - Other nonspecific abnormal finding of lung field Category: Medical Plan: Results of CT chest reviewed, stable pulmonary nodules. Continue with yearly screening, next in February of 2025. Medications: New caneigsxdlg-igwtnywhz-stalhlfw 200-62.5-25 mcg (Trelegy Ellipta) 1 inh inhalation DAILY 30 days 1 ea 6RF Discontinued umeclidinium-vilanterol 62.5-25 mcg/actuation Discontinued Reason: Doctor's Order 1 ea PO DAILY 30 days 1 ea 6RF J44.9 - Chronic obstructive pulmonary disease, unspecified Coding Level of Care Code Est Pt Level 4 (15544) Diagnoses Severe chronic obstructive pulmonary disease J44.9 Supplemental oxygen dependent Z99.81 Pulmonary nodules R91.8
== END 2024-04-08 15:34 | disposition home or self-care (01) ==
PROVIDERS: PCP Nurse Practitioner Family; Visit Provider Internal Medicine Pulmonary Disease
DX: J44.9 Chronic obstructive pulmonary disease, unspecified (principal); Z99.81 Dependence on supplemental oxygen; R91.8 Other nonspecific abnormal finding of lung field
CPT/HCPCS: 99214

== ENCOUNTER → 2024-04-08 15:04 | Outpatient (BNVA) | payer OTHER, SELFPAY | PROVIDERS: PCP Nurse Practitioner Family; Visit Provider Internal Medicine Pulmonary Disease | DX: J44.9 Chronic obstructive pulmonary disease, unspecified (principal); R91.8 Other nonspecific abnormal finding of lung field; Z99.81 Dependence on supplemental oxygen | CPT/HCPCS: 99212 ==

== ENCOUNTER 2024-06-30 10:07 | Outpatient (AMB) | payer OTHER, SELFPAY ==
[2024-06-30 10:13] VITALS: BP 140/67; PULSE 112; O2SAT 96; BMI 26.9
--- NOTE | 2024-06-30 10:13 | MHC.OFFVIS ---
Vital Signs 06/30/24 10:13 Height 4 ft 11 in Weight 133 lb 6.075 oz BMI 26.9 BP 140/67 H Blood Pressure Location Rt brachial Position Sitting Pulse 112 H Pulse Source Doppler Pulse Oximetry (%) 96 Oxygen Delivery Method Nasal Cannula Oxygen Flow Rate 3 Intake Visit Reasons: 3 month f/u Allergies gabapentin [GABAPENTIN] Allergy (Unknown, Verified 12/23/23 10:41) UNKNOWN mirtazapine Allergy (Unknown, Verified 12/23/23 10:41) Unknown penicillin G Allergy (Unknown, Verified 12/23/23 10:41) Unknown pravastatin Allergy (Unknown, Verified 12/23/23 10:41) Unknown quetiapine [Seroquel] Allergy (Unknown, Verified 12/23/23 10:41) Unknown HPI HPI 3 month f/u: Details: 74-year-old lady, recent 55+ pack-year smoker, quit 2018, followed for underlying 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 She continues to use Anoro, albuterol MDI, theophylline 400, and duo nebs previous with good control of her underlying symptoms. Her follow-up CT chest showed stable pulmonary nodules.? She denies recent exacerbations. She tried pulmonary rehab but did not like it. She today complains of slowly worsening dyspnea on exertion. [facility] Medical History (Updated 06/06/22 @ 13:02 by Tristin Mireles PA-C) Fibromyalgia High blood pressure Stomach problems Surgical History (Updated 06/06/22 @ 11:08 by Jovanna Thurman [facility]) History of shoulder surgery H/O pelvic surgery Social History Household Members: Family Household Members Other:: Son Patient Tobacco Use Status: Former Tobacco user Years Smoked: 35 Current occupational status: retired Review of Systems Const Denies daytime sleepiness, Denies excessive sweating, Denies fatigue, Denies fever(s), Denies lethargy, Denies malaise, Denies night sweats, Denies snoring and Denies weight loss Eyes Denies blurry vision and Denies itchy eyes ENT Denies nasal congestion, Denies post nasal drip, Denies sinus pain, Denies sinus pressure and Denies other ( Thrush) Card Denies chest pain, Denies pedal edema, Denies dyspnea, Reports dyspnea on exertion, Denies orthopnea and Denies paroxysmal nocturnal dyspnea Resp Denies cough, Denies hemoptysis, Denies excessive phlegm production, Denies dyspnea, Reports dyspnea on exertion, Denies snoring and Denies wheezing GI Denies abdominal pain and Denies heartburn Musc Denies myalgias, Denies arthralgias and Denies joint swelling Skin/Breast Denies rash Neuro Denies memory loss and Denies seizure-like activity Psych Denies abnormal sleep pattern, Denies anxiety and Denies memory loss Endo Denies excessive sweating, Denies fatigue and Denies heat intolerance Clement/Lymph Denies easy bruising Aller/Immun Denies itchy eyes, Denies seasonal rhinorrhea and Denies wheezing Physical Exam Vital Signs: Last Vital Signs Pulse 112 H 06/30/24 10:13 BP 140/67 H 06/30/24 10:13 Pulse Ox 96 06/30/24 10:13 Oxygen Delivery Method Nasal Cannula 06/30/24 10:13 Oxygen Flow Rate 3 06/30/24 10:13 BMI result Body Mass Index 26.9 Const General: no acute distress and alert Nutritional Appearance: not obese Orientation/consciousness: Other orientation findings ( oriented) HEENT Head: Yes atraumatic Eyes General: appearance normal, both eyes and all related structures Sclerae: sclerae normal EOM: EOMs intact bilaterally Neck Neck: Yes supple Lymphatic: no lymphadenopathy noted Resp Effort & Inspection: normal respiratory effort and no use of accessory muscles Auscultation: clear to auscultation bilaterally Cardio Rate: regular rate Rhythm: regular rhythm Heart sounds: no gallops, no murmurs and no rubs Skin General skin exam: other ( warm) Extrem General: No clubbing, No cyanosis and No edema Assessment & Plan Assessment & Plan (1) Severe chronic obstructive pulmonary disease: Code(s): J44.9 - Chronic obstructive pulmonary disease, unspecified Category: Medical Plan: Slowly worsening control on maximum medical regimen of Trelegy, duo nebs, and albuterol MDI. (2) Supplemental oxygen dependent: Code(s): Z99.81 - Dependence on supplemental oxygen Category: Medical Plan: Supplemental oxygen/6 minute walk test performed. Patient requires supplemental oxygen at 2 L continuous flow to maintain normal oximetry with exertion. Updated order placed with [employer]. (3) Pulmonary nodules: Code(s): R91.8 - Other nonspecific abnormal finding of lung field Category: Medical Plan: 5 mm and under stable bilateral pulmonary nodules. Follow-up CT chest is pending for February of 2025. Coding Level of Care Code Est Pt Level 4 (95709) Complex EM visit Add On G2211 Diagnoses Severe chronic obstructive pulmonary disease J44.9 Supplemental oxygen dependent Z99.81 Pulmonary nodules R91.8
[2024-06-30 14:56] VITALS: PULSE 114; O2SAT 93
== END 2024-06-30 10:48 | disposition home or self-care (01) ==
PROVIDERS: PCP Nurse Practitioner Family; Visit Provider Internal Medicine Pulmonary Disease
DX: J44.9 Chronic obstructive pulmonary disease, unspecified (principal); Z99.81 Dependence on supplemental oxygen; R91.8 Other nonspecific abnormal finding of lung field
CPT/HCPCS: 94618; 99214; G2211

== ENCOUNTER → 2024-06-30 10:07 | Outpatient (BNVA) | payer OTHER, SELFPAY | PROVIDERS: PCP Nurse Practitioner Family; Visit Provider Internal Medicine Pulmonary Disease | DX: J44.9 Chronic obstructive pulmonary disease, unspecified (principal); R91.8 Other nonspecific abnormal finding of lung field; Z99.81 Dependence on supplemental oxygen | CPT/HCPCS: 94618; 99212 ==

== ENCOUNTER 2024-10-14 11:43 | Outpatient (AMB) | payer OTHER, SELFPAY ==
[2024-10-14 11:44] VITALS: BP 148/80; PULSE 113; O2SAT 96; BMI 27.8
--- NOTE | 2024-10-14 11:44 | MHC.OFFVIS ---
Vital Signs 10/14/24 11:44 Height 4 ft 11 in Weight 137 lb 12.623 oz BMI 27.8 BP 148/80 H Blood Pressure Location Rt brachial Position Sitting Pulse 113 H Pulse Source Doppler Pulse Oximetry (%) 96 Oxygen Delivery Method Nasal Cannula Oxygen Flow Rate 4 Intake Visit Reasons: copd Allergies gabapentin [GABAPENTIN] Allergy (Unknown, Verified 12/23/23 10:41) UNKNOWN mirtazapine Allergy (Unknown, Verified 12/23/23 10:41) Unknown penicillin G Allergy (Unknown, Verified 12/23/23 10:41) Unknown pravastatin Allergy (Unknown, Verified 12/23/23 10:41) Unknown quetiapine [Seroquel] Allergy (Unknown, Verified 12/23/23 10:41) Unknown HPI HPI copd: Details: 74-year-old lady, recent 55+ pack-year smoker, quit 2019, followed for underlying 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 She continues to use Trelegy albuterol MDI, theophylline 400, and duo nebs previous with good control of her underlying symptoms. Her follow-up CT chest showed stable pulmonary nodules.? She denies recent exacerbations. [facility] Medical History (Updated 10/14/24 @ 08:58 by Tammie Redding PA-C) Pulmonary nodules Supplemental oxygen dependent Personal history of nicotine dependence Fibromyalgia High blood pressure Stomach problems Surgical History (Updated 06/06/22 @ 11:08 by Jovanna Thurman [facility]) History of shoulder surgery H/O pelvic surgery Social History Household Members: Family Household Members Other:: Son Patient Tobacco Use Status: Former Tobacco user Years Smoked: 35 Current occupational status: retired Review of Systems Const Denies daytime sleepiness, Denies excessive sweating, Denies fatigue, Denies fever(s), Denies lethargy, Denies malaise, Denies night sweats, Denies snoring and Denies weight loss Eyes Denies blurry vision and Denies itchy eyes ENT Denies nasal congestion, Denies post nasal drip, Denies sinus pain, Denies sinus pressure and Denies other ( Thrush) Card Denies chest pain, Denies pedal edema, Denies dyspnea, Reports dyspnea on exertion, Denies orthopnea and Denies paroxysmal nocturnal dyspnea Resp Denies cough, Denies hemoptysis, Denies excessive phlegm production, Denies dyspnea, Reports dyspnea on exertion, Denies snoring and Denies wheezing GI Denies abdominal pain and Denies heartburn Musc Denies myalgias, Denies arthralgias and Denies joint swelling Skin/Breast Denies rash Neuro Denies memory loss and Denies seizure-like activity Psych Denies abnormal sleep pattern, Denies anxiety and Denies memory loss Endo Denies excessive sweating, Denies fatigue and Denies heat intolerance Clement/Lymph Denies easy bruising Aller/Immun Denies itchy eyes, Denies seasonal rhinorrhea and Denies wheezing Physical Exam Vital Signs: Last Vital Signs Pulse 113 H 10/14/24 11:44 BP 148/80 H 10/14/24 11:44 Pulse Ox 96 10/14/24 11:44 Oxygen Delivery Method Nasal Cannula 10/14/24 11:44 Oxygen Flow Rate 4 10/14/24 11:44 BMI result Body Mass Index 27.8 Const General: no acute distress and alert Nutritional Appearance: not obese Orientation/consciousness: Other orientation findings ( oriented) HEENT Head: Yes atraumatic Eyes General: appearance normal, both eyes and all related structures Sclerae: sclerae normal EOM: EOMs intact bilaterally Neck Neck: Yes supple Lymphatic: no lymphadenopathy noted Resp Effort & Inspection: normal respiratory effort and no use of accessory muscles Auscultation: clear to auscultation bilaterally Cardio Rate: regular rate Rhythm: regular rhythm Heart sounds: no gallops, no murmurs and no rubs Skin General skin exam: other ( warm) Extrem General: No clubbing, No cyanosis and No edema Assessment & Plan Assessment & Plan (1) Pulmonary nodules: Code(s): R91.8 - Other nonspecific abnormal finding of lung field Category: Medical Plan: Stable on the prior CT. Follow-up CT chest is pending for February of 2025. (2) Severe chronic obstructive pulmonary disease: Code(s): J44.9 - Chronic obstructive pulmonary disease, unspecified Category: Medical Plan: On maximum therapy with trilogy, theophylline, duo nebs, and albuterol MDI. Will refer to Pulmonary rehab. (3) Supplemental oxygen dependent: Code(s): Z99.81 - Dependence on supplemental oxygen Category: Medical Plan: Continue supplemental oxygen to maintain O2 saturation of 88-92%. Patient still [facility] Orders: Orders Pulmonary Rehab Today J44.9 - Chronic obstructive pulmonary disease, unspecified Medications: New albuterol sulfate 90 mcg/actuation (Ventolin HFA) 2 puffs inhalation QID PRN 1 ea 6RF wheezing J44.9 - Chronic obstructive pulmonary disease, unspecified Refilled theophylline ER 400 mg PO DAILY 30 tabs 6RF J44.9 - Chronic obstructive pulmonary disease, unspecified Coding Level of Care Code Est Pt Level 4 (45752) Complex EM visit Add On G2211 Diagnoses Pulmonary nodules R91.8 Severe chronic obstructive pulmonary disease J44.9 Supplemental oxygen dependent Z99.81
--- OUTSIDE RECORDS SUMMARY | 2024-10-14 13:30 | XMS_ITS | Clinical Summary ---
Author Organization Unknown Care Team Providers Care Leadership Coach Name Role Phone KAITLIN OPTOMETRIC AIDE, BRUCE Unavailable Unavailable ZOILA RN, LICENSED PRACTICAL NURSE, ABHAY Unavail able Unavailable RAAD DOMINGO, AYAKA Unavailable Unavailable Payers Payer Name Policy Type Policy Number Effective Date Expira tion Date [facility] [id number] [place] [id number] MEDICARE - [facility] [id number] Problems Condition Name Condition Details Condition Category Status Onset Date Resolution Date Last Treatment Date Treating Clinician Comments MAJOR DEPRESSV DISORDER, RECURRENT, SEVERE W PSYCH SYMPTOMS Active 11-26 00:00: 00 Allergies, Adverse Reactions, Alerts Allergy Name Allergy Type Status Severity Reaction(s) Onset Date Inactive Date Treating Clinician Comments NKA Propensity to adverse reactions Active 2021-11 12:11:1 4 Medications Ordered Medication Name Filled Medication Name Start Date Stop Date Current Medication? Ordering Clinician Indication Dosage Frequency Signature (SIG) Comments Components Ventolin HFA 90 mcg/actuati on aerosol inhaler 11-22 00:00: 00 11-28 23:59 :00 No [id number] FOR WHEEZING 90 puff 4 TIMES DAILY NEEDED 90 puff 4 TIMES DAILY NEEDED (route: inhalation ) Med Classific ation: Respirato ry Therapy Agents Anoro Ellipta 62.5 mcg-25 mcg/actuati on powder for inhalation 11-22 00:00: 00 11-28 23:59 :00 No [id number] 62.5 inhalat ion ONCE DAILY 62.5 inhalation ONCE DAILY (route: inhalation ) Med Classific ation: Respirato ry Therapy Agents pramipexole 0.5 mg tablet 2022-0 2-07 00:00: 00 11-28 23:59 :00 No [id number] 0.5 mg TWICE DAILY 0.5 mg TWICE DAILY (route: oral) Med Classific ation: Central Nervous System Agents levothyroxi ne 125 mcg tablet 2020-10 00:00: 00 11-28 23:59 :00 No [id number] 125 mcg ONCE DAILY 125 mcg ONCE DAILY (route: oral) Med Classific ation: Endocrine cyanocobala min (vit B-12) 1,000 mcg/mL injection solution 12-05 00:00: 00 Yes [id number] 1000 mcg WEEKLY 1000 mcg WEEKLY (route: injection) Med Classific ation: Electroly te Balance-N utritiona l Products Acetaminoph en Extra Strength 500 mg tablet 03-28 00:00: 00 Yes [id number] 2 tablet EVERY 6 HOURS 2 tablet EVERY 6 HOURS (route: oral) Med Classific ation: Analgesic , Anti-infl ammatory or Antipyret ic amlodipine 5 mg tablet 03-28 00:00: 00 Yes [id number] 1 tablet EVERY AM 1 tablet EVERY AM (route: oral) Med Classific ation: Cardiovas cular Therapy Agents levothyroxi ne 125 mcg tablet 03-28 00:00: 00 Yes [id number] 1 tablet EVERY AM 1 tablet EVERY AM (route: oral) Med Classific ation: Endocrine Plavix 75 mg tablet 03-28 00:00: 00 Yes [id number] 1 tablet DAILY 1 tablet DAILY (route: oral) Med Classific ation: Hematolog ical Agents pramipexole 0.5 mg tablet 03-28 00:00: 00 Yes [id number] 2 tablet 2 TIMES DAILY 2 tablet 2 TIMES DAILY (route: oral) Med Classific ation: Central Nervous System Agents theophyllin e ER 400 mg tablet,exte nded release 24 hr 03-28 00:00: 00 Yes [id number] 1 tablet DAILY 1 tablet DAILY (route: oral) Med Classific ation: Respirato ry Therapy Agents Plan of Treatment Planned Activity Planned Date Details Comments Future Scheduled Test SKILLED NU RSE TO PERFORM GENERAL ASSESSMENT AND EVALUATE PATIENT, IDENTIFY PRIMARY AND CO-MORBID CONDITIONS, AND DEVELOP PATIENT SPECIFIC PLAN OF CARE THAT INCLUDES PATIENT GOAL FOR HOME HEALTH. CLINICAL SUMMARY (RECERT) RECERTIFICATION VISIT FOR 72 YEAR OLD FEMALE WITH LONG HISTORY OF PROFOUND DEPRESSION. HER SON IS LIVING WITH HER WHILE HE GOES THROUGH A NASTY DIVORCE. SHE CAN DRIVE BUT HAS NO CAR SO DOING ANYTHING IS HARD. REFILL FOR B12 HAD NOT BEEN ORDERED, SO THAT WAS DONE WITH PICKUP LATER TODAY. SHE IS PRESENTLY BEING WORKED UP FOR ABDOMINAL TENDERNESS AND INTOLERANCE FOR FOOD WHICH CAUSES DIARRHEA. HER MOOD IS DOWN, ALMOST CRYING A FEW TIMES WHILE TALKING OF CAT SCAN IN [place] - SHE IS POSITIVELY TERRIFIED THAT SHE MAY HAVE CANCER. B12 INJECTIONS MONTHLY. SN 1W1, 1 EVERY 4W8 FOR B12 INJECTION, ASSESSMENT OF MOOD AND DEPRESSION. [code = SKILLED NURSE TO PERFORM GENERAL ASSESSMENT AND EVALUATE PATIENT, IDENTIFY PRIMARY AND CO-MORBID CONDITIONS, AND DEVELOP PATIENT SPECIFIC PLAN OF CARE THAT INCLUDES PATIENT GOAL FOR HOME HEALTH. CLINICAL SUMMARY (RECERT) RECERTIFICATION VISIT FOR 72 YEAR OLD FEMALE WITH LONG HISTORY OF PROFOUND DEPRESSION. HER SON IS LIVING WITH HER WHILE HE GOES THROUGH A NASTY DIVORCE. SHE CAN DRIVE BUT HAS NO CAR SO DOING ANYTHING IS HARD. REFILL FOR B12 HAD NOT BEEN ORDERED, SO THAT WAS DONE WITH PICKUP LATER TODAY. SHE IS PRESENTLY BEING WORKED UP FOR ABDOMINAL TENDERNESS AND INTOLERANCE FOR FOOD WHICH CAUSES DIARRHEA. HER MOOD IS DOWN, ALMOST CRYING A FEW TIMES WHILE TALKING OF CAT SCAN IN [place] - SHE IS POSITIVELY TERRIFIED THAT SHE MAY HAVE CANCER. B12 INJECTIONS MONTHLY. SN 1W1, 1 EVERY 4W8 FOR B12 INJECTION, ASSESSMENT OF MOOD AND DEPRESSION.] Future Scheduled Test SKILLED NU RSE FOR O/A OF CLIENT'S KNOWLEDGE OF DISEASE PROCESS AND MANAGEMENT. MAY TEACH DISEASE MANAGEMENT TECHNIQUES DESIGNED TO INCREASE CLIENT'S FUNCTIONAL STATUS. [code = SKILLED NURSE FOR O/A OF CLIENT'S KNOWLEDGE OF DISEASE PROCESS AND MANAGEMENT. MAY TEACH DISEASE MANAGEMENT TECHNIQUES DESIGNED TO INCREASE CLIENT'S FUNCTIONAL STATUS.] Future Scheduled Test SKILLED NU RSE FOR O/A OF CLIENT'S AVAILABLE SUPPORT SYSTEMS. SN TO ASSIST CLIENT IN IDENTIFYING AND ACCESSING SUPPORT SYSTEMS FOR ASSISTANCES [code = SKILLED NURSE FOR O/A OF CLIENT'S AVAILABLE SUPPORT SYSTEMS. SN TO ASSIST CLIENT IN IDENTIFYING AND ACCESSING SUPPORT SYSTEMS FOR ASSISTANCES] Future Scheduled Test SKILLED NU RSE FOR O/A OF CLIENT'S IMPAIRED NUTRITION: LESS THAN REQUIRED. MAY TEACH INTERVENTIONS DESIGNED TO IMPROVE NUTRITIONAL INTAKE AND WELLBEING [code = SKILLED NURSE FOR O/A OF CLIENT'S IMPAIRED NUTRITION: LESS THAN REQUIRED. MAY TEACH INTERVENTIONS DESIGNED TO IMPROVE NUTRITIONAL INTAKE AND WELLBEING] Future Scheduled Test SKILLED NU RSE FOR MEDICATION ADMINISTRATION PER MEDICATION LIST TO BE PERFORMED MONTHLY. [code = SKILLED NURSE FOR MEDICATION ADMINISTRATION PER MEDICATION LIST TO BE PERFORMED MONTHLY.] Future Scheduled Test SKILLED NU RSE TO O/A OF PATIENTS MENTAL/BEHAVIORAL STATUS, ASSESS VITAL SIGNS NEEDED, ALLOW 2 PRNS FOR MEDICATION MANAGEMENT. [code = SKILLED NURSE TO O/A OF PATIENTS MENTAL/BEHAVIORAL STATUS, ASSESS VITAL SIGNS NEEDED, ALLOW 2 PRNS FOR MEDICATION MANAGEMENT.] Future Scheduled Test SKILLED NU RSE FOR O/A OF ALTERED THOUGHT PROCESS AND/OR DISRUPTION IN COGNITIVE OPERATIONS AND ACTIVITIES [code = SKILLED NURSE FOR O/A OF ALTERED THOUGHT PROCESS AND/OR DISRUPTION IN COGNITIVE OPERATIONS AND ACTIVITIES ] Future Scheduled Test SKILLED NU RSE MAY PICKUP AND TRANSPORT MEDICATIONS [code = SKILLED NURSE MAY PICKUP AND TRANSPORT MEDICATIONS] Future Scheduled Test SKILLED NU RSE FOR O/A OF GENERAL HEALTH STATUS OF PAIN, CARDIAC, RESPIRATORY, GASTROINTESTINAL, GENITOURINARY, SKIN, NEUROLOGIC, ENDOCRINE SYSTEMS TO IDENTIFY CHANGES ASSOCIATED WITH EXACERBATION FOR EARLY INTERVENTION OF COMPLICATIONS [code = SKILLED NURSE FOR O/A OF GENERAL HEALTH STATUS OF PAIN, CARDIAC, RESPIRATORY, GASTROINTESTINAL, GENITOURINARY, SKIN, NEUROLOGIC, ENDOCRINE SYSTEMS TO IDENTIFY CHANGES ASSOCIATED WITH EXACERBATION FOR EARLY INTERVENTION OF COMPLICATIONS ] Future Scheduled Test SKILLED NU RSE FOR O/A AND SKILLED TEACHING OF COPING SKILLS TO MANAGE ANXIETY AND MAINTAIN SAFETY. [code = SKILLED NURSE FOR O/A AND SKILLED TEACHING OF COPING SKILLS TO MANAGE ANXIETY AND MAINTAIN SAFETY.] Future Scheduled Test SKILLED NU RSE FOR O/A AND SKILLED TEACHING RELATED TO MANAGEMENT OF DEPRESSIVE SYMPTOMS AND/OR DEPRESSION. [code = SKILLED NURSE FOR O/A AND SKILLED TEACHING RELATED TO MANAGEMENT OF DEPRESSIVE SYMPTOMS AND/OR DEPRESSION.] Goal 2022-01-23 Patient Goal - TAKING MY INJ ECTION Goal 2022-03-25 Patient Goal - TAKING MY INJ ECTION Goal 2022-05-26 Patient Goal - TAKING MY INJ ECTION Goal Provider Goal - A PLAN OF CARE WILL BE ESTABLISHED THAT MEETS PATIENT'S ASSISTED NEEDS AND INCLUDES PATIENT GOAL FOR HOME HEALTH. Goal Provider Goal - ALTERED MENTAL/BEHAVIORAL STATUS WILL BE IDENTIFIED PROMPTLY AND INTERVENTION INITIATED QUICKLY TO MINIMIZE ASSOCIATED RISKS Goal Provider Goal - PATIENT WILL COMPLY WITH MEDICATION WHEN NURSE ADMINISTERS. Goal Provider Goal - PATIENT WILL REMAIN SAFE WITHOUT DECOMPENSATION IN DEPRESSIVE CONDITION, WHILE MAINTAINING OPTIMAL LEVEL OF MENTAL HEALTH AND WELL BEING. Goal Provider Goal - PATIENT WILL BE ABLE TO PERFORM DAILY FUNCTIONS AND HAVE OPTIMAL IMPROVEMENT IN LEVEL OF ANXIETY Goal Provider Goal - Goal Provider Goal - PATIENT WILL DEMONSTRATE IMPROVED MANAGEMENT SKILLS IN DEALING WITH CURRENT DISEASE PROCESS BY THE END OF THE CERTIFICATION PERIOD. Goal Provider Goal - PATIENT WILL VERBALIZE AND ACKNOWLEDGE AVAILABLE SUPPORT SYSTEMS AND DEMONSTRATE WILLINGNESS TO UTILIZE SUPPORT ASSISTANCE WITHIN THIS CERFITICATION PERIOD. Goal Provider Goal - PATIENT WILL MAINTAIN THE CURRENT WEIGHT OR DEMONSTRATE A WEIGHT GAIN, AND WILL NOT LOSE WEIGHT DURING THIS CERTIFICATION PERIOD. Reason for Visit INDEPENDENT IN THE COMMUNITY Encounters Start Date/Time End Date/Time Encounter Type Admission Type Attending [facility] Care Department Encounter ID Discharge Date Discharge Status Discharge Condition Discharge Reason Percent Goals Met 2021-11-28 00:00:00 2022-05-26 00:00:00 Outpatient RECERTIFIC ATION AYAKA SHANKAR [facility] [id number] [id number] 00:00:00 DISCHARGE TO HOME OR SELF CARE INDEPENDEN T IN THE COMMUNITY NON COMPLIANT WITH PLAN OF TREATMENT 6.25
--- OUTSIDE RECORDS SUMMARY | 2024-10-14 13:31 | XMS_ITS | Continuity of Care Document ---
Author Organization [facility] Address [address] [place] [address] Phone Care Team Providers Care Switch Maker Name Role Phone Fransico Frost MD Unavailable [...] INF INIT Simponi [facility] HR Simponi Aria OFF[facility]PAT[facility] IV INFUSION 1 HR Simponi [...] PROTEIN ASSAY OF CREATININE RBC SED RATE [place] OFFICE/OUTPATIENT VISIT EST TB INTRADERMAL TEST ASSAY [...] Copied on Encounter [facility] [address], [address] [place] [address], tel:[phone] [facility] No Information 2 [facility]. [address] [place] [address], [id number] , [place]. tel:[phone] Referring Provider: Jimbo Bales, [address], [address] . tel:[phone] [facility] [address], [id number], tel:[phone] [facility] No Information 1 Margot Bateman. [address] [place] [address], [id number] , . tel:[phone] Referring Provider: Jimbo Bales, [address], [address] . tel:[phone] OFFICE/OUTPA TIENT VISIT EST [facility], [address] [place] [address], [address] [place] [address], tel:[phone] [facility] Rheumatoid Arthritis (chief complaint) Rheumatoid arthritis w/o rheumatoid factor, multiple sitesOth disrd of bone density and structure, multiple sitesOther termite control representative (current) drug therapy 1 Karinachun Fransico. On license of [facility] [place], [place], [address] [place] [address] , [place]. tel: [phone] Referring Provider: Jimbo Bales [address], [address] . tel:[phone] [facility], [address] [place] [address], [address] [place] [address], tel:[phone] [facility] No Information 0 Adalid Garcia. [address], [place], [place], [facility], [place]. tel:[phone] OFFICE/OUTPA TIENT VISIT EST [facility], [address] [place] [address], [address] [place] [address], tel:[phone] [facility] Rheumatoid Arthritis (chief complaint) Rheumatoid arthritis w/o rheumatoid factor, multiple sitesLow back painOth disrd of bone density and structure, multiple sitesOther nursing home (current) drug therapy 0 Margot Bateman. On license of [facility] [place], [place], [address] [place] [address] , [place]. tel: [phone] Referring Provider: Jimbo Bales, [address] , [place], [address] . tel:[phone] OFFICE/OUTPA TIENT VISIT EST [facility], [address] [place] [address], [address] [place] [address], [place] tel:[phone] [facility] Rheumatoid Arthritis (chief complaint) Rheumatoid arthritis w/o rheumatoid factor, multiple sitesLow back painOth disrd of bone density and structure, multiple sitesOther termite control representative (current) drug therapy 9 9 Margot Bateman. [facility] [place], [place], [address] [place] [address] , . tel: [phone] Referring Provider: Jimbo Bales, [address] , [place], [address] . tel:[phone] [facility], [address] [place] [address], [address] [place] [address], [place] tel:[phone] [facility] No Information 0 9 Margot Cowartdi. [address] [place] [address], [address] [place] [address] , [place]. tel: [phone] [facility], [address] [place] [address], [address] [place] [address], tel:[phone] [facility] No Information 9 Margot Bateman. [address] [place] [address], [address] [place] [address] , [place]. tel: [phone] Referring Provider: Jimbo Bales, [address], [address] . tel:[phone] OFFICE/OUTPA TIENT VISIT EST [facility], [address] [place] [address], [address] [place] [address], tel:[phone] [facility] Rheumatoid Arthritis (chief complaint) Rheumatoid arthritis w/o rheumatoid factor, multiple sitesLow back painOth disrd of bone density and structure, multiple sitesOther nursing home (current) drug therapy 9 [facility]. [address] [place] [address], [address] [place] [address] , [place]. tel: [phone] Referring Provider: Jimbo Bales, [address] [place] [address], [address] . tel:[phone] OFFICE/OUTPA TIENT VISIT EST [facility], [address] [place] [address], [address] [place] [address], tel:[phone] [facility] Rheumatoid Arthritis (chief complaint) Rheumatoid arthritis w/o rheumatoid factor, multiple sitesLow back painOth disrd of bone density and structure, multiple sitesOther termite control representative (current) drug therapy 0-201 9 [facility]. [facility] [place], [address] [place] [address] , [place]. tel: [phone] Referring Provider: Jimbo Bales, [address], [address] . tel:[phone] OFFICE/OUTPA TIENT VISIT EST [facility] [address], [address] [place] [address], tel:[phone] [facility] Rheumatoid Arthritis (chief complaint) Rheumatoid arthritis w/o rheumatoid factor, multiple sitesLow back painOther nursing home (current) drug therapyOth disrd of bone density and structure, multiple sites 0 9 8 [facility] Fransico. [address] [place] [address], [address] [place] [address] , [place]. tel: [phone] Referring Provider: Jimbo Bales, [address], [address] . tel:[phone] OFFICE/OUTPA TIENT VISIT EST [facility], [address] [place] [address], [address] [place] [address], tel:[phone] [facility] Rheumatoid Arthritis (chief complaint) Rheumatoid arthritis w/o rheumatoid factor, multiple sitesLow back painOther termite control representative (current) drug therapyOth disrd of bone density and structure, multiple sites 0 6201 8 [facility] Fransico. [address] [place] [address], [address] [place] [address] , [place]. tel: [phone] Referring Provider: Jimbo Bales, [address], [address] . tel:[phone] OFFICE/OUTPA TIENT VISIT EST [facility], [address] [place] [address], [address] [place] [address], tel:[phone] [facility] Psoriatic Arthritis (chief complaint) Rheumatoid arthritis w/o rheumatoid factor, multiple sitesLow back painOther termite control representative (current) drug therapyVitamin D deficiency, unspecified Nov-2 3 8 [facility] [address] [place] [address], [address] [place] [address] , . tel: [phone] Referring Provider: Jimbo Bales, [address] [place] [address], [address] . tel:[phone] [facility], [address] [place] [address], [address] [place] [address], tel:[phone] [facility] Rheumatoid arthritis w/o rheumatoid factor, multiple sites May-0 8 7 [facility] Fransico. [address] [place] [address], [address] [place] [address] , . tel: [phone] OFFICE/OUTPA TIENT VISIT EST [facility], [address] [place] [address], [address] [place] [address], tel:[phone] [facility] reese ankle pain (chief complaint)b il knee pain (chief complaint)r ight hand pain (chief complaint) Rheumatoid arthritis w/o rheumatoid factor, multiple sitesPain in right kneeLow back painOther termite control representative (current) drug therapy Dec-0 2 7 [facility] Fransico. [address] [place] [address], [address] [place] [address] , . tel: [phone] Referring Provider: Jimbo Bales, [address] [place] [address], [address] . tel:[phone] OFFICE/OUTPA TIENT VISIT EST [facility], [address] [place] [address], [address] [place] [address], tel:[phone] [facility] Rheumatoid Arthritis (chief complaint)S imponi ARIA 2mg/kg q8wks (chief complaint) Rheumatoid arthritis w/o rheumatoid factor, multiple sitesPain in right kneeLow back painOther termite control representative (current) drug therapy 6 Talai Fransico. [facility] [place], [id number] , [place]. tel:[phone] Referring Provider: Jimbo Bales, [address], [place], [address] . tel:[phone] OFFICE/OUTPA TIENT VISIT EST [facility], [address] [place] [address], [id number], [place] tel:[phone] [facility] Rheumatoid Arthritis (chief complaint)S Imponia Aria 2mg/kg every 8 weeks (chief complaint) Rheumatoid arthritis w/o rheumatoid factor, multiple sitesPain in right kneeLow back painOther termite control representative (current) drug therapyOther fatigue 6 Margot Bateman. On license of [facility] [place], [id number] , [place]. tel:[phone] Referring Provider: Jimbo Bales, [address], [place], [address] . tel:[phone] [facility], [address] [place] [address], [id number], tel:[phone] [facility] No Information 6 Charli Warner. [address], [place], [id number] . [phone] Referring Provider: Timmy Augustin, [facility] [place], [address] . tel:[phone] OFFICE/OUTPA TIENT VISIT EST [facility], [address] [place] [address], [id number], [place] tel:[phone] [facility] Rheumatoid Arthritis (chief complaint)S imponi ARIA 2mg/kg q8wks (chief complaint) Rheumatoid arthritis w/o rheumatoid factor, multiple sitesPain in right kneeLow back painOther nursing home (current) drug therapy 6 Karinaouri Fransico. [address] [place] [address], [address] [place] [address] , . tel:[phone] Referring Provider: Jimbo Bales, [address] [place] [address], [address] . tel:[phone] OFFICE/OUTPA TIENT VISIT EST [facility], [address] [place] [address], [address] [place] [address], tel:[phone] [facility] Rheumatoid Arthritis (chief complaint)S imponi ARIA 2mg/kg q8wks (chief complaint) Rheumatoid arthritis w/o rheumatoid factor, multiple sitesPain in right kneeOther termite control representative (current) drug therapyLow back pain 6 Margot Cowartdi. [address] [place] [address], [address] [place] [address] , . tel: [phone] Referring Provider: Jimbo Bales, [address], [address] . tel:[phone] OFFICE/OUTPA TIENT VISIT EST [facility], [address] [place] [address], [address] [place] [address], tel:[phone] [facility] Rheumatoid Arthritis (chief complaint)s imponi aria 2mg/kg IV every 8 weeks (chief complaint) Rheumatoid arthritis w/o rheumatoid factor, multiple sitesPain in right kneeOther termite control representative (current) drug therapy 6 Margot Cowartdi. [address] [place] [address], [address] [place] [address] , [place]. tel:[phone] Referring Provider: Jimbo Bales, [address], [address] . tel:[phone] OFFICE/OUTPA TIENT VISIT EST [facility], [address] [place] [address], [address] [place] [address], [place] tel:[phone] [facility] Rheumatoid Arthritis (chief complaint)# 3 Simponi ARIA 2mg/kg q8wks (chief complaint) Rheumatoid arthritis w/o rheumatoid factor, multiple sitesPain in right kneeOther termite control representative (current) drug therapy 5 Karinachun Fransico. [address] [place] [address], [address] [place] [address] , . tel:[phone] Referring Provider: Jimbo Bales, [address], [address] . tel:[phone] OFFICE/OUTPA TIENT VISIT EST [facility], [address] [place] [address], [address] [place] [address], tel:[phone] [facility] Rheumatoid Arthritis (chief complaint)# 2 Simponi ARIA 2mg/kg (chief complaint) DyspepsiaRheumatoid arthritisOsteoarthr osis, unspecified whether generalized or localized, involving lower legLONG-TERM (CURRENT) USE OF STEROIDS Talayanique Fransico. [address] [place] [address], [address] [place] [address] , . tel: [phone] Referring Provider: Jimbo Bales, [address], [address] . tel:[phone] OFFICE/OUTPA TIENT VISIT EST [facility], [address] [place] [address], [id number], tel:[phone] [facility] Rheumatoid Arthritis (chief complaint)s imponi aria 2mg/kg IV . Dose #1 (chief complaint) Rheumatoid arthritisOsteoarthr osis, unspecified whether generalized or localized, involving lower legLONG-TERM (CURRENT) USE OF STEROIDSDyspepsia 0 5 Talayanique Fransico. [address] [place] [address], [address] [place] [address] , . tel:[phone] Referring Provider: Jimbo Bales, [address], [address] . tel:[phone] OFFICE/OUTPA TIENT VISIT EST [facility] [address], [id number], [place] tel:[phone] [facility] right knee pain (chief complaint) Rheumatoid arthritisLONG-TERM (CURRENT) USE OF STEROIDSOsteoarthro sis, unspecified whether generalized or localized, involving lower leg Jan-0 5 [facility]. On license of [facility] [place], [id number] , [place]. tel: [phone] Referring Provider: Jimbo Bales, [facility] [address], [address] . tel:[phone] OFFICE/OUTPA TIENT VISIT EST [facility], [address] [place] [address], [address] [place] [address], [place] tel:[phone] [facility] right knee pain and swollen (chief complaint) Rheumatoid arthritis 4 Margot Cowartdi. On license of [facility] [place], [id number] , [place]. tel: [phone] Referring Provider: Jimbo Bales, [facility] [address], [address] . tel:[phone] OFFICE/OUTPA TIENT VISIT EST [facility], On license of [facility] [place], [address] [place] [address], [place] tel:[phone] [facility] No Information 4 Margot Cowartdi. On license of [facility] [place], [address] [place] [address] , [place]. tel: [phone] Referring Provider: Jimbo Bales, [facility] [address], [address] . tel:[phone] [facility], On license of [facility] [place], [address] [place] [address], [place] tel:[phone] [facility] No Information 4 Adalid Garcia. [address], [place], [address], [place]. [phone] Referring Provider: Jimbo Bales, [address], [address] . tel:[phone] [facility] [address], [id number], tel:[phone] Myalgia and myositis, unspecified 3 Margot Bateman. [facility] [place], [id number] , . tel:[phone] [facility] [address], [id number], tel:[phone] LONG-TERM (CURRENT) USE OF STEROIDSLumbagoRheu matoid arthritis 3 Margot Bateman. [address] [place] [address], [id number] , . tel: [phone] Family History Family Member Type Diagnosis Age [...] Unspecified Payers Payer name Insurance type Covered constitution party ID Authoriza tiwilliams(s) Medicare MB [id number] [employer] CI [id number] Social History Type Description Quantity Date Captured [...] DEXA); axial skeleton (e.g., hips, pelvis, spine) (60143), Ordered on: Ordered Future Order: Radiology Order Liao nds Bilat (2 Or More Joints)(1 View) ([id number]), Ordered on: Ordered Future Order: Radiology Order Ch est X-ray; AP (2 View) ([id number]), Ordered on: Ordered Future Order: Radiology Order Truong ne density study (by DEXA); axial skeleton (e.g., hips, pelvis, spine) (50098), Ordered on: Ordered Future Order: Radiology Order Ch est X-ray; AP/Lat (2 views) ([id number]), Ordered on: Ordered Future Order: Radiology Order Liao nds Bilat (2 Or More Joints)(1 View) ([id number]), Ordered on: Ordered History Of Present Illness [...]
== END 2024-10-14 12:03 | disposition home or self-care (01) ==
PROVIDERS: PCP Nurse Practitioner Family; Visit Provider Internal Medicine Pulmonary Disease
DX: R91.8 Other nonspecific abnormal finding of lung field (principal); J44.9 Chronic obstructive pulmonary disease, unspecified; Z99.81 Dependence on supplemental oxygen
CPT/HCPCS: 99214; G2211

== ENCOUNTER → 2024-10-14 11:43 | Outpatient (BNVA) | payer OTHER, SELFPAY | PROVIDERS: PCP Nurse Practitioner Family; Visit Provider Internal Medicine Pulmonary Disease | DX: J44.9 Chronic obstructive pulmonary disease, unspecified (principal); R91.8 Other nonspecific abnormal finding of lung field; Z99.81 Dependence on supplemental oxygen | CPT/HCPCS: 99212 ==

== ENCOUNTER → 2024-11-11 14:57 | Outpatient (BNV) | payer OTHER, SELFPAY | PROVIDERS: PCP Nurse Practitioner Family; Visit Provider Internal Medicine | DX: D72.829 Elevated white blood cell count, unspecified (principal) | CPT/HCPCS: 99204; G2211 ==

== ENCOUNTER → 2024-11-16 10:52 | Outpatient (BNVA) | payer OTHER, SELFPAY | PROVIDERS: PCP Nurse Practitioner Family; Visit Provider Internal Medicine Pulmonary Disease | DX: J44.9 Chronic obstructive pulmonary disease, unspecified (principal); R09.89 Other specified symptoms and signs involving the circulatory and respiratory systems; Z99.81 Dependence on supplemental oxygen; Z87.891 Personal history of nicotine dependence | CPT/HCPCS: 99212 ==

== ENCOUNTER 2024-12-16 10:57 | Outpatient (AMB) | payer OTHER, SELFPAY ==
--- NOTE | 2024-12-16 10:59 | MHC.OFFVIS ---
Vital Signs 12/16/24 11:00 Height 4 ft 11 in Weight 130 lb BMI 26.3 BP 132/62 Blood Pressure Location Rt brachial Position Sitting Pulse 113 H Pulse Source Doppler Pulse Oximetry (%) 96 Oxygen Delivery Method Nasal Cannula Oxygen Flow Rate 5 Intake Visit Reasons: COPD Allergies gabapentin [GABAPENTIN] Allergy (Unknown, Verified 12/16/24 11:05) UNKNOWN mirtazapine Allergy (Unknown, Verified 12/16/24 11:05) Unknown penicillin G Allergy (Unknown, Verified 12/16/24 11:05) Unknown pravastatin Allergy (Unknown, Verified 12/16/24 11:05) Unknown quetiapine [Seroquel] Allergy (Unknown, Verified 12/16/24 11:05) Unknown HPI HPI COPD: Details: 74-year-old lady, recent 55+ pack-year smoker, quit 2019, followed for underlying 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 She continues to use Trelegy albuterol MDI, theophylline 400, and duo nebs, and Ohtuvayre with reasonable control of her underlying symptoms. Her hyperventilation and anxiety related air trapping is better controlled on clonazepam. Her follow-up CT chest showed stable pulmonary nodules.? She denies recent exacerbations. Patient did try pulmonary rehab, however she is not particularly interested in continuation. COUNT INCLUDES [facility] Medical History (Updated 12/12/24 @ 15:30 by Mar Rojas MD) Pulmonary nodules Supplemental oxygen dependent Personal history of nicotine dependence Fibromyalgia High blood pressure Stomach problems Surgical History History of shoulder surgery H/O pelvic surgery Social History Household Members: Family Household Members Other:: Son Patient Tobacco Use Status: Former Tobacco user Years Smoked: 35 Substance Use Type: Marijuana service: No Current occupational status: retired Gender identity: Female Review of Systems Const Denies daytime sleepiness, Denies excessive sweating, Denies fatigue, Denies fever(s), Denies lethargy, Denies malaise, Denies night sweats, Denies snoring and Denies weight loss Eyes Denies blurry vision and Denies itchy eyes ENT Denies nasal congestion, Denies post nasal drip, Denies sinus pain, Denies sinus pressure and Denies other ( Thrush) Card Denies chest pain, Denies pedal edema, Denies dyspnea, Denies orthopnea and Denies paroxysmal nocturnal dyspnea Resp Denies cough, Denies hemoptysis, Denies excessive phlegm production, Denies dyspnea, Denies snoring and Denies wheezing GI Denies abdominal pain and Denies heartburn Musc Denies myalgias, Denies arthralgias and Denies joint swelling Skin/Breast Denies rash Neuro Denies memory loss and Denies seizure-like activity Psych Denies abnormal sleep pattern, Denies anxiety and Denies memory loss Endo Denies excessive sweating, Denies fatigue and Denies heat intolerance Clement/Lymph Denies easy bruising Aller/Immun Denies itchy eyes, Denies seasonal rhinorrhea and Denies wheezing Physical Exam Vital Signs: Last Vital Signs Pulse 113 H 12/16/24 11:00 BP 132/62 12/16/24 11:00 Pulse Ox 96 12/16/24 11:00 Oxygen Delivery Method Nasal Cannula 12/16/24 11:00 Oxygen Flow Rate 5 12/16/24 11:00 BMI result Body Mass Index 26.3 Const General: no acute distress and alert Nutritional Appearance: not obese Orientation/consciousness: Other orientation findings ( oriented) HEENT Head: Yes atraumatic Eyes General: appearance normal, both eyes and all related structures Sclerae: sclerae normal EOM: EOMs intact bilaterally Neck Neck: Yes supple Lymphatic: no lymphadenopathy noted Resp Effort & Inspection: normal respiratory effort and no use of accessory muscles Auscultation: clear to auscultation bilaterally Cardio Rate: regular rate Rhythm: regular rhythm Heart sounds: no gallops, no murmurs and no rubs Skin General skin exam: other ( warm) Extrem General: No clubbing, No cyanosis and No edema Assessment & Plan Assessment & Plan (1) Severe chronic obstructive pulmonary disease: Code(s): J44.9 - Chronic obstructive pulmonary disease, unspecified Category: Medical Plan: Reasonable baseline control on maximum therapy with Trelegy, theophylline, duo nebs, Ohtuvayre, and albuterol MDI. Continue current regimen. (2) Supplemental oxygen dependent: Code(s): Z99.81 - Dependence on supplemental oxygen Category: Medical Plan: Continue supplemental oxygen to maintain O2 saturation of 88-92%. (3) Pulmonary air trapping: Code(s): R09.89 - Other specified symptoms and signs involving the circulatory and respiratory systems Category: Medical Plan: Improved control on b.i.d. clonazepam. Continue current regimen. (4) Personal history of nicotine dependence: Comment: (former smoker - 55+PYH, quit 2018) Code(s): Z87.891 - Personal history of nicotine dependence Category: Medical Plan: Follow-up CT scan is pending for February of 2025. Coding Level of Care Code Est Pt Level 4 (94129) Complex EM visit Add On G2211 Diagnoses Severe chronic obstructive pulmonary disease J44.9 Supplemental oxygen dependent Z99.81 Pulmonary air trapping R09.89 Personal history of nicotine dependence Z87.891
[2024-12-16 11:00] VITALS: BP 132/62; PULSE 113; O2SAT 96; BMI 26.3
--- OUTSIDE RECORDS SUMMARY | 2024-12-16 12:38 | XMS_ITS | Patient Health Record ---
[facility] Address [address] [facility] [place] [address] Care Team Providers Care Surgical Rn Name Role Phone Rosemary Ankita KELSEY Primary Care Provider Unavail able Jacoby Ku Unavailable [phone] Allergies Allergen (clinical drug ingredient) Drug/Non Drug Allergy documented on EMR Reaction Allergy Type Onset Date Status Analgesic Unknown Drug Allergy Active quetiapine SEROquel Unknown Drug Allergy Active mirtazapine Mirtazapine Unknown Drug Allergy Act alec Penicillin Unknown Drug Allergy Active pravastatin Pravastatin Unknown Drug Allergy Act alec Reason For Referral No Information Medications Medication SIG (Take, Route, Frequency, Duration) Notes Start Date End Date Status Custom Orthotics as directed 01/01/2022 Active Theophylline ER 400 MG 1 tablet Orally O nce a day for 30 day(s) Active Physical Therapy . . . 2-3x/week for 3- 4 weeks 01/01/2022 Active Pramipexole Dihydrochloride 0.5 MG 1 tablet Orally Once a day for 30 day(s) Active Night Splint AFO - L1930 as directed 01/01/2022 Active oxygen Active Levothyroxine Sodium 125 MCG as directed Orally Active Calcium + D Active Acetaminophen 500 MG as directed Orally Active Albuterol-Ipratropium Active Vitamin D3 Active Immunizations Vaccine Route Administration Date Status Comme nts COVID-19 Pfizer BioNTech Vaccine Unknown 10/30/2021 Administered 1st 01/18/2021 2nd 02/08/2021 Social History Tobacco Use: Social History Observation Description Date Details (start date - stop date) Former Smoker NA - NA Tobacco Use/Smoking Question Answer Notes Are you a: former smoker Additional Findings: Tobacco Non-User Current no n-smoker Alcohol Screen Question Answer Notes Did you have a drink containing alcohol in the p ast year? Yes Points 0 Interpretation Negative Tobacco use other than smoking: Question Answer Notes Are you an other tobacco user? No Problems Problem Type SNOMED Code ICD Code Onset Dates Problem Status W/U Status Risk Notes Problem Acquired hallux valgus (81121958) Hallux valgus (acquired), left foot (M20.12) Active confirmed Plan Of Treatment Pending Test Test Name Order Date X ray : Foot, left 3V 01/01/2022 X ray : Foot, right 3V 01/01/2022 Insurance Providers Payer Name Payer Address Payer Phone Subscriber Number Group Number Insured Name Patient Relationship to Insured Coverage Start Date Coverage End Date [facility] [employer] Claims [address] [place] [phone] [id number] Sarah Newby Self - patient is the insured Medical (General) History Medical History History ICD Code Anxiety Arthritis Back,Hip,and Knee pain Broken bones Depression Fibromyalgia Headaches/Migraines High blood pressure thyroid Measles Mumps Chicken pox Surgical History Surgery Date(Month/Year) Broken right Shoulder 2019 neck surgery 2020
--- OUTSIDE RECORDS SUMMARY | 2024-12-16 12:38 | XMS_ITS | Continuity of Care Document ---
Author Organization [facility] [place] Address [address] [place] [address] Phone Care Team Providers Care Glaze Maker Name Role Phone Fransico Frost MD [...] INF INIT Simponi Aria [facility] Simponi A[facility]US[facility] 1 HR Simponi [...] PROTEIN ASSAY OF CREATININE RBC SED RATE [place] OFFICE/OUTPATIENT VISIT EST TB INTRADERMAL TEST ASSAY [...] Copied on Encounter [facility] [address], [address] [place] [address], tel:[phone] [facility] No Information 2 [facility] Cowart[facility]. [address] [place] [address], [id number] , [place]. tel:[phone] Referring Provider: Jimbo Bales, [address], [address] . tel:[phone] [facility] [address], [id number], tel:[phone] [facility] No Information 1 Margot Bateman. [address] [place] [address], [id number] , . tel:[phone] Referring Provider: Jimbo Bales, [address], [address] . tel:[phone] OFFICE/OUTPA TIENT VISIT EST [facility], [address] [place] [address], [address] [place] [address], tel:[phone] [facility] Rheumatoid Arthritis (chief complaint) Rheumatoid arthritis w/o rheumatoid factor, multiple sitesOth disrd of bone density and structure, multiple sitesOther jail (current) drug therapy 1 Karinachun Fransico. [facility] [place], [place], [address] [place] [address] , [place]. tel: [phone] Referring Provider: Jimbo Bales [address], [address] . tel:[phone] [facility], [address] [place] [address], [address] [place] [address], tel:[phone] [facility] No Information 0 Adalid Garcia. [address], [place], [place], [facility], [place]. tel:[phone] OFFICE/OUTPA TIENT VISIT EST [facility], [address] [place] [address], [address] [place] [address], tel:[phone] [facility] Rheumatoid Arthritis (chief complaint) Rheumatoid arthritis w/o rheumatoid factor, multiple sitesLow back painOth disrd of bone density and structure, multiple sitesOther remote computer terminal operator (current) drug therapy 0 Margot Bateman. [facility] [place], [place], [address] [place] [address] , [place]. tel: [phone] Referring Provider: Jimbo Bales, [address] , [place], [address] . tel:[phone] OFFICE/OUTPA TIENT VISIT EST [facility], [address] [place] [address], [address] [place] [address], [place] tel:[phone] [facility] Rheumatoid Arthritis (chief complaint) Rheumatoid arthritis w/o rheumatoid factor, multiple sitesLow back painOth disrd of bone density and structure, multiple sitesOther remote computer terminal operator (current) drug therapy 9 9 Margot Bateman. [facility] [place], [address] [place] [address] , . tel: [phone] Referring Provider: Jimbo Bales, [address] , [place], [address] . tel:[phone] [facility], [address] [place] [address], [address] [place] [address], [place] tel:[phone] [facility] No Information 0 9 Margot Cowartdi. [address] [place] [address], [address] [place] [address] , [place]. tel: [phone] [facility], [address] [place] [address], [address] [place] [address], tel:[phone] [facility] No Information 9 Margot Bateman. [address] [place] [address], [address] [place] [address] , [place]. tel: [phone] Referring Provider: Jimbo Bales, [address], [address] . tel:[phone] OFFICE/OUTPA TIENT VISIT EST [facility], [address] [place] [address], [address] [place] [address], tel:[phone] [facility] Rheumatoid Arthritis (chief complaint) Rheumatoid arthritis w/o rheumatoid factor, multiple sitesLow back painOth disrd of bone density and structure, multiple sitesOther jail (current) drug therapy 9 [facility]. [address] [place] [address], [address] [place] [address] , [place]. tel: [phone] Referring Provider: Jimbo Bales, [address] [place] [address], [address] . tel:[phone] OFFICE/OUTPA TIENT VISIT EST [facility], [address] [place] [address], [address] [place] [address], tel:[phone] [facility] Rheumatoid Arthritis (chief complaint) Rheumatoid arthritis w/o rheumatoid factor, multiple sitesLow back painOth disrd of bone density and structure, multiple sitesOther remote computer terminal operator (current) drug therapy [phone] [facility] Cowart[facility]. [facility] [place], [address] [place] [address] , [place]. tel: [phone] Referring Provider: Jimbo Bales, [address], [address] . tel:[phone] OFFICE/OUTPA TIENT VISIT EST [facility] [address], [address] [place] [address], tel:[phone] [facility] Rheumatoid Arthritis (chief complaint) Rheumatoid arthritis w/o rheumatoid factor, multiple sitesLow back painOther jail (current) drug therapyOth disrd of bone density and structure, multiple sites 0 9 8 [facility] Fransico. [address] [place] [address], [address] [place] [address] , [place]. tel: [phone] Referring Provider: Jimbo Bales, [address], [address] . tel:[phone] OFFICE/OUTPA TIENT VISIT EST [facility], [address] [place] [address], [address] [place] [address], tel:[phone] [facility] Rheumatoid Arthritis (chief complaint) Rheumatoid arthritis w/o rheumatoid factor, multiple sitesLow back painOther jail (current) drug therapyOth disrd of bone density and structure, multiple sites 0 [phone] 8 [facility] Fransico. [address] [place] [address], [address] [place] [address] , [place]. tel: [phone] Referring Provider: Jimbo Bales, [address], [address] . tel:[phone] OFFICE/OUTPA TIENT VISIT EST [facility], [address] [place] [address], [address] [place] [address], tel:[phone] [facility] Psoriatic Arthritis (chief complaint) Rheumatoid arthritis w/o rheumatoid factor, multiple sitesLow back painOther jail (current) drug therapyVitamin D deficiency, unspecified Nov-2 3 8 [facility]. [address] [place] [address], [address] [place] [address] , . tel: [phone] Referring Provider: Jimbo Bales, [address] [place] [address], [address] . tel:[phone] [facility], [address] [place] [address], [address] [place] [address], tel:[phone] [facility] Rheumatoid arthritis w/o rheumatoid factor, multiple sites May-0 8 7 [facility] Fransico. [address] [place] [address], [address] [place] [address] , . tel: [phone] OFFICE/OUTPA TIENT VISIT EST [facility], [address] [place] [address], [address] [place] [address], tel:[phone] [facility] reese ankle pain (chief complaint)b il knee pain (chief complaint)r ight hand pain (chief complaint) Rheumatoid arthritis w/o rheumatoid factor, multiple sitesPain in right kneeLow back painOther remote computer terminal operator (current) drug therapy Dec-0 2 7 [facility] Fransico. [address] [place] [address], [address] [place] [address] , . tel: [phone] Referring Provider: Jimbo Bales, [address] [place] [address], [address] . tel:[phone] OFFICE/OUTPA TIENT VISIT EST [facility], [address] [place] [address], [address] [place] [address], tel:[phone] [facility] Rheumatoid Arthritis (chief complaint)S imponi ARIA 2mg/kg q8wks (chief complaint) Rheumatoid arthritis w/o rheumatoid factor, multiple sitesPain in right kneeLow back painOther jail (current) drug therapy 6 Talai Fransico. [facility] [place], [id number] , [place]. tel:[phone] Referring Provider: Jimbo Bales, [address], [place], [address] . tel:[phone] OFFICE/OUTPA TIENT VISIT EST [facility], [address] [place] [address], [id number], [place] tel:[phone] [facility] Rheumatoid Arthritis (chief complaint)S Imponia Aria 2mg/kg every 8 weeks (chief complaint) Rheumatoid arthritis w/o rheumatoid factor, multiple sitesPain in right kneeLow back painOther jail (current) drug therapyOther fatigue 6 Margot Bateman. [facility] [place], [id number] , [place]. tel:[phone] Referring Provider: Jimbo Bales, [address], [place], [address] . tel:[phone] [facility], [address] [place] [address], [id number], tel:[phone] [facility] No Information 6 Charli Warner. [address] [place], [place], [id number] . [phone] Referring Provider: Timmy Augustin, [facility] [place], [address] . tel:[phone] OFFICE/OUTPA TIENT VISIT EST [facility], [address] [place] [address], [id number], [place] tel:[phone] [facility] Rheumatoid Arthritis (chief complaint)S imponi ARIA 2mg/kg q8wks (chief complaint) Rheumatoid arthritis w/o rheumatoid factor, multiple sitesPain in right kneeLow back painOther remote computer terminal operator (current) drug therapy 6 Karinaouri Fransico. [address] [place] [address], [address] [place] [address] , . tel:[phone] Referring Provider: Jimbo Bales, [address] [place] [address], [address] . tel:[phone] OFFICE/OUTPA TIENT VISIT EST [facility], [address] [place] [address], [address] [place] [address], tel:[phone] [facility] Rheumatoid Arthritis (chief complaint)S imponi ARIA 2mg/kg q8wks (chief complaint) Rheumatoid arthritis w/o rheumatoid factor, multiple sitesPain in right kneeOther jail (current) drug therapyLow back pain 6 Margot Cowartdi. [address] [place] [address], [address] [place] [address] , . tel: [phone] Referring Provider: Jimbo Bales, [address], [address] . tel:[phone] OFFICE/OUTPA TIENT VISIT EST [facility], [address] [place] [address], [address] [place] [address], tel:[phone] [facility] Rheumatoid Arthritis (chief complaint)s imponi aria 2mg/kg IV every 8 weeks (chief complaint) Rheumatoid arthritis w/o rheumatoid factor, multiple sitesPain in right kneeOther jail (current) drug therapy 6 Margot Cowartdi. [address] [place] [address], [address] [place] [address] , [place]. tel:[phone] Referring Provider: Jimbo Bales, [address], [address] . tel:[phone] OFFICE/OUTPA TIENT VISIT EST [facility], [address] [place] [address], [address] [place] [address], [place] tel:[phone] [facility] Rheumatoid Arthritis (chief complaint)# 3 Simponi ARIA 2mg/kg q8wks (chief complaint) Rheumatoid arthritis w/o rheumatoid factor, multiple sitesPain in right kneeOther jail (current) drug therapy 5 Karinachun Fransico. [address] [place] [address], [address] [place] [address] , . tel:[phone] Referring Provider: Jimbo Bales, [address], [address] . tel:[phone] OFFICE/OUTPA TIENT VISIT EST [facility], [address] [place] [address], [address] [place] [address], tel:[phone] [facility] Rheumatoid Arthritis (chief complaint)# 2 Simponi ARIA 2mg/kg (chief complaint) DyspepsiaRheumatoid arthritisOsteoarthr osis, unspecified whether generalized or localized, involving lower legLONG-TERM (CURRENT) USE OF STEROIDS Talayanique Fransico. [address] [place] [address], [address] [place] [address] , . tel: [phone] Referring Provider: Jimbo Bales, [address], [address] . tel:[phone] OFFICE/OUTPA TIENT VISIT EST [facility], [address] [place] [address], [id number], tel:[phone] [facility] Rheumatoid Arthritis (chief complaint)s imponi aria 2mg/kg IV . Dose #1 (chief complaint) Rheumatoid arthritisOsteoarthr osis, unspecified whether generalized or localized, involving lower legLONG-TERM (CURRENT) USE OF STEROIDSDyspepsia 0 5 Talayanique Fransico. [address] [place] [address], [address] [place] [address] , . tel:[phone] Referring Provider: Jimbo Bales, [address], [address] . tel:[phone] OFFICE/OUTPA TIENT VISIT EST [facility] [address], [id number], [place] tel:[phone] [facility] right knee pain (chief complaint) Rheumatoid arthritisLONG-TERM (CURRENT) USE OF STEROIDSOsteoarthro sis, unspecified whether generalized or localized, involving lower leg Jan-0 5 [facility]. [facility] [place], [id number] , [place]. tel: [phone] Referring Provider: Jimbo Bales, [facility] [address], [address] . tel:[phone] OFFICE/OUTPA TIENT VISIT EST [facility], [address] [place] [address], [address] [place] [address], [place] tel:[phone] [facility] right knee pain and swollen (chief complaint) Rheumatoid arthritis 4 Margot Cowartdi. [facility] [place], [id number] , [place]. tel: [phone] Referring Provider: Jimbo Bales, [facility] [address], [address] . tel:[phone] OFFICE/OUTPA TIENT VISIT EST [facility], [facility] [place], [address] [place] [address], [place] tel:[phone] [facility] No Information 4 Margot Cowartdi. [facility] [place], [address] [place] [address] , [place]. tel: [phone] Referring Provider: Jimbo Bales, [facility] [address], [address] . tel:[phone] [facility], [facility] [place], [address] [place] [address], [place] tel:[phone] [facility] No Information 4 Adalid Garcia. [address], [place], [address], [place]. [phone] Referring Provider: Jimbo Bales, [address], [address] . tel:[phone] [facility] [address], [id number], tel:[phone] Myalgia and myositis, unspecified 3 Margot Bateman. [facility] [place], [id number] , . tel:[phone] [facility] [address], [id number], tel:[phone] LONG-TERM (CURRENT) USE OF STEROIDSLumbagoRheu matoid arthritis 3 Margot Bateman. [address] [place] [address], [id number] , . tel: [phone] Family History Family Member Type Diagnosis Age [...] constitution party ID Authoriza tiwilliams(s) Medicare MB [id number] [employer] CI [id number] Social History Type Description Quantity Date Captured [...] DEXA); axial skeleton (e.g., hips, pelvis, spine) (33491), Ordered on: Ordered Future Order: Radiology Order Liao nds Bilat (2 Or More Joints)(1 View) ([id number]), Ordered on: Ordered Future Order: Radiology Order Ch est X-ray; AP (2 View) ([id number]), Ordered on: Ordered Future Order: Radiology Order Truong ne density study (by DEXA); axial skeleton (e.g., hips, pelvis, spine) ([id number]), Ordered on: Ordered Future Order: Radiology Order Ch est X-ray; AP/Lat (2 views) ([id number]), Ordered on: Ordered Future Order: Radiology Order Liao nds Bilat (2 Or More Joints)(1 View) ([id number]), Ordered on: Ordered History Of Present Illness [...]
--- OUTSIDE RECORDS SUMMARY | 2024-12-16 12:38 | XMS_ITS | Encounter Summary ---
Author Organization [employer] Address [address] [place] [address] [address] [place] [address] Care Team Providers Care Processor Grain Name Role Phone Unavailable Primary Care Provider Unavailabl e Encounter Details Date Type Department Care Team (Latest Contact Info) Description 02/25/2019 Abstract [facility] CONVERSIONS Dental, Provider, DDS Social History Tobacco Use Types Packs/Day Years Used Date Smoking Tobacco: Never Assessed Comments Unknown Sex and Gender Information Value Date Recorded Sex Assigned at Female 08/11/2022 10:30 AM EDT Legal Sex Female 10:30 AM EDT Gender Identity Female 08/11/2022 10:30 AM EDT Sexual Orientation Straight 08/11/2022 10 :30 AM EDT documented as of this encounter Plan of Treatment Not on file documented as of this encounter Visit Diagnoses Not on filedocumented in this encounter
--- OUTSIDE RECORDS SUMMARY | 2024-12-16 12:38 | XMS_ITS | Clinical Summary ---
Author Organization [employer] Address [address] [place] [address] [address] [place] [address] Care Team Providers Care Community Health Consultant Name Role Phone Unavailable Primary Care Provider Unavailabl e Social History Tobacco Use Types Packs/Day Years Used Date Smoking Tobacco: Never Assessed Comments Unknown Sex and Gender Information Value Date Recorded Sex Assigned at Female 08/11/2022 10:30 AM EDT Legal Sex Female 10:30 AM EDT Gender Identity Female 08/11/2022 10:30 AM EDT Sexual Orientation Straight 08/11/2022 10 :30 AM EDT Plan of Treatment Health Maintenance Due Date Last Done Comments CT Colonography 1952 Colonoscopy 1952 Colorectal Cancer Screening 1952 Depression Screening 1952 FIT DNA/Cologuard 1952 FIT 1952 FOBT 1952 Sigmoidoscopy 1952 Alcohol/Substance Use Screening 1964 Tobacco Screening 1964 DTaP/Tdap/Td Vaccines (1 - Tdap) 1971 Mammogram 1992 Pneumococcal Vaccine: 50+ Ye ars (1 of 1 - PCV) 2002 Zoster Vaccines (1 of 2) 2002 COVID-19 Vaccine ( - 2023-2 5 season) 2024 Influenza Vaccine (#1) 2024 RSV Patients and Pa tients Aged 60 years or older (1 - 1-dose 75+ series) 2027 HIB Vaccines Aged Out No longer eligi ble based on patient's age to complete this topic HPV Vaccines Aged Out No longer eligi ble based on patient's age to complete this topic Hepatitis A Vaccines Aged Out No long er eligible based on patient's age to complete this topic Hepatitis B Vaccines Aged Out No long er eligible based on patient's age to complete this topic IPV Vaccines Aged Out No longer eligi ble based on patient's age to complete this topic Meningococcal Vaccine Aged Out No daphne christian eligible based on patient's age to complete this topic RSV under 20 months Aged Out No longe r eligible based on patient's age to complete this topic Rotavirus Vaccines Aged Out No longer eligible based on patient's age to complete this topic
--- OUTSIDE RECORDS SUMMARY | 2024-12-16 12:38 | XMS_ITS | Clinical Summary ---
Author Organization [facility] [address] [facility] Address [address] [place] [address] Phone Care Team Providers Care Licensed Insurance Sales Agent Name Role Phone Rosemary, Ankita BEAR Primary Care Provider [phone] Allergies Active Allergy Reactions Criticality Noted Date Comments Penicillin G Potassium 10/17/2005 Procaine Hcl 10/17/2005 Medications levothyroxine (SYNTHROID, LEVOTHROID) 75 mcg tablet 1 TABLET DAILY Active multivit-minera ls/folic acid (MULTIVITAMIN GUMMIES ORAL) None Entered Act alec Active Problems Problem Noted Date Diagnosed Date Asthma 10/17/2005 Hypothyroidism 10/17/2005 Hyperlipidemia 10/17/2005 Surgical History Surgery Date Site/Laterality Comments SHOULDER SURGERY CAROTID ENDARTERECTOMY 10/12/2020 - 10/11/2021 Left HYSTERECTOMY LAPAROTOMY OOPHERECTOMY 06/02/2022 Bilateral ESOPHAGOGASTRODUODENOSCOPY 03/07/2022 bx - 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 COLONOSCOPY 05/18/2012 nl- hemorrhoids COLONOSCOPY 04/15/2022 nl- tics, hemorrhoids - prep only Fair Medical History Medical History Date Comments Unspecified asthma(493.90) 10/17/2005 DX:Un specified asthma(493.90) Chronic nausea Irritable bowel syndrome with constipation Hypothyroid RLS (restless legs syndrome) COPD (chronic obstructive pu lmonary disease) case management patient ([facility]) Migraines Family History Medical History Relation Name Comments Colon cancer Father Heart attack Father Heart attack Mother Relation Name Status Comments Father Mother Social History Tobacco Use Types Packs/Day Years Used Date Smoking Tobacco: Every Day Cigarettes Alcohol Use Standard Drinks/Week Comments Not Currently 0 (1 standard drink = 0.6 oz pur e alcohol) Comments Unknown Sex and Gender Information Value Date Recorded Sex Assigned at Not on file Legal Sex Female 8:37 PM EST Gender Identity Not on file Sexual Orientation Not on file 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 file Not on file Not on file Obstetrics History Plan of Treatment Upcoming Encounters Date Type Department Care Team (Late st Contact Info) Description 01/31/2025 2:00 PM EDT Office Visit Gastroenterology - [address] [place] [address] [facility] [address] [place] [id number] Melissa Bunn MD [address] [facility] [address] [place] [address] Health Maintenance Due Date Last Done Comments Breast Cancer Screening 1950 DTaP,Tdap,and Td Vaccines (1 - Tdap) 1971 Pneumococcal Vaccine: 50+ Ye ars (1 of 2 - PCV) 1971 Zoster Vaccines (1 of 2) 2002 RSV Immunization Patients 60 + Years Old (1 - Risk 60-74 years 1-dose series) 2012 Cholesterol Screening (Lipid Panel) 09/13/2022 Colorectal Cancer Screening: Colonoscopy 09/13/2022 Depression Screening 09/13/2022 Falls Risk Assessment 09/13/2022 Hepatitis C Screening 09/13/2022 Osteoporosis Screening (Bone Density Screening) 09/13/2022 Social Influencers of Health Screening 09/13/2022 COVID-19 Vaccine ( - 2023-2 5 season) 2024 Influenza Vaccine (#1) 2024 HIB Vaccines Aged Out No longer eligi [...] on patient's age to complete this topic MMR Vaccines Aged Out No longer eligi ble based on patient's age to complete this topic Meningococcal ACWY Vaccine Aged Out N o longer eligible based on patient's age to complete this topic Meningococcal B Vacine Aged Out No lo nger eligible based on patient's age to complete this topic RSV Immunization Patients Un ashlyn 20 months Aged Out No longer eligible b ased on patient's age to complete this topic Varicella Vaccines Aged Out No longer eligible based on patient's age to complete this topic Insurance [facility] Member Subscriber Plan / Payer (Ef fective 2019-Present) Name:Sarah Newby Relation to Subscriber:Self Name:Sarah Newby Payer ID:[id number] Group ID:[id number] Type:Not on file Address: [place] [address] [place] [phone] Care Teams Licensed Insurance Sales Agent Relationship Specialty Start Date End Date Ankita Riley NP [address] [facility] [address] [facility] [id number] [place] [phone] PCP - General 01/09/23
== END 2024-12-16 11:18 | disposition home or self-care (01) ==
PROVIDERS: PCP Nurse Practitioner Family; Visit Provider Internal Medicine Pulmonary Disease
DX: J44.9 Chronic obstructive pulmonary disease, unspecified (principal); Z99.81 Dependence on supplemental oxygen; R09.89 Other specified symptoms and signs involving the circulatory and respiratory systems; Z87.891 Personal history of nicotine dependence
CPT/HCPCS: 99214; G2211

== ENCOUNTER → 2024-12-16 10:57 | Outpatient (BNVA) | payer OTHER, SELFPAY | PROVIDERS: PCP Nurse Practitioner Family; Visit Provider Internal Medicine Pulmonary Disease | DX: J44.9 Chronic obstructive pulmonary disease, unspecified (principal); R09.89 Other specified symptoms and signs involving the circulatory and respiratory systems; Z99.81 Dependence on supplemental oxygen; Z87.891 Personal history of nicotine dependence | CPT/HCPCS: 99212 ==

== ENCOUNTER 2025-02-27 10:56 | Outpatient (REF) | payer OTHER, SELFPAY ==
--- NOTE | ~2025-02-27 | CT_ITS ---
CLINICAL HISTORY: R91.8 - Other nonspecific abnormal finding of lung field CT chest without contrast Comparison: CT/UT/SR - CT CHEST WO IV CON - 02/10/24 10:36 EDT Findings: There are mild coronary artery calcifications. The visualized thyroid and mediastinum are unremarkable. Pulmonary nodules and calcified granulomata. No new nodules are seen The upper abdomen is unremarkable. No acute fractures. IMPRESSION: 1. No acute process or interval changes. Remote granulomatous process. Moderate centrilobular emphysema. This document has been electronically signed by: Luis Juarez MD on 02/28/2025 09:31:34
--- OUTSIDE RECORDS SUMMARY | 2025-02-27 11:38 | XMS_ITS | Encounter Summary ---
Author Organization [employer] Address [address] [facility] [address] [place] [address] Care Team Providers Care Labor Crew Supervisor Name Role Phone Unavailable Primary Care Provider Unavailabl e Encounter Details Date Type Department Care Team (Latest Contact Info) Description 02/25/2019 Abstract [facility] CONVERSIONS Dental, Provider, DDS Social History [...]
--- OUTSIDE RECORDS SUMMARY | 2025-02-27 11:39 | XMS_ITS | Clinical Summary ---
Author Organization [employer] Address [address] [facility] [address] [place] [address] Care Team Providers Care Oriental Medicine Practitioner Name Role Phone Unavailable Primary Care Provider [...] age to complete this topic Meningococcal B Vaccine Aged Out No l onger eligible based on patient's age to complete [...]
--- OUTSIDE RECORDS SUMMARY | 2025-02-27 11:39 | XMS_ITS | Patient Health Record ---
Author [facility] Address [address] [place] [address] Care Team Providers Care Airframe Technical Officer Name Role Phone Rosemary Ankita KELSEY Primary Care Provider Unavail able Jacoby Ku Unavailable [phone] Allergies Allergen (clinical drug ingredient) Drug/Non Drug [...] Status Risk Notes Problem Acquired hallux valgus (91364519) Hallux valgus (acquired), left foot (M20.12) Active confirmed Plan Of Treatment Pending Test Test Name Order Date X ray : Foot, left 3V 01/01/2022 X ray : Foot, right 3V 01/01/2022 Insurance Providers Payer Name Payer Address Payer Phone Subscriber Number Group Number Insured Name Patient Relationship to Insured Coverage Start Date Coverage End Date [facility] [employer] Claims [address] [place] [address] [id number] Sarah Newby Self - patient is the insured Medical (General) History Medical History History ICD Code Anxiety Arthritis Back,Hip,and Knee pain Broken bones Depression Fibromyalgia Headaches/Migraines High blood pressure thyroid Measles Mumps Chicken pox Surgical History Surgery Date(Month/Year) Broken right Shoulder 2019 neck surgery 2020
--- OUTSIDE RECORDS SUMMARY | 2025-02-27 11:39 | XMS_ITS | Clinical Summary ---
Author Organization [facility] [address] [facility] Address [address] [place] [address] Phone Care Team Providers Care Track Mechanic Name Role Phone Rosemary, Ankita BEAR Primary Care Provider [phone] Allergies Active Allergy Reactions Criticality Noted Date Comments Penicillin G Potassium 10/17/2005 Procaine Hcl 10/17/2005 Medications multivit-mineral s/folic acid (MULTIVITAMIN GUMMIES ORAL) None Entered Active aspirin 81 mg EC tablet Take 1 tablet (81 mg total) by mouth 1 (one) time each day. 04/12/20 24 Active amitriptyline (ELAVIL) 10 mg tablet Take 1 tablet (10 mg total) by mouth. at bedtime. 04/22/20 24 Active amLODIPine (NORVASC) 10 mg tablet 11/30/19 25 Active atorvastatin (LIPITOR) 80 mg tablet Take 1 tablet (80 mg total) by mouth every other day. 11/04/19 25 Active DULoxetine (CYMBALTA) [address] capsule Take 1 capsule (20 mg total) by mouth 1 (one) time each day. 11/01/19 25 Active Jardiance 10 mg tablet Take 1 tablet (10 mg total) by mouth 1 (one) time each day in the morning. 12/31/19 25 Active levothyroxine (SYNTHROID, LEVOTHROID) 150 mcg tablet Take 1 tablet (150 mcg total) by mouth 1 (one) time each day. 12/31/19 25 Active ondansetron (ZOFRAN) 4 mg tablet Take 1 tablet (4 mg total) by mouth every 6 (six) hours if needed. 06/20/20 24 Active pramipexole (MIRAPEX) 0.5 mg tablet Take 2 tablets (1 mg total) by mouth 2 (two) times a day. 12/24/19 25 Active pantoprazole (PROTONIX) 20 mg EC tablet Take 1 tablet (20 mg total) by mouth 1 (one) time each day. 11/01/19 25 Active theophylline (UNIPHYL) 400 mg 24 hr tablet Take 1 tablet (400 mg total) by mouth 1 (one) time each day. 01/17/20 25 Active Trelegy Ellipta 200-62.5-25 mcg inhaler Inhale 1 puff (200 mcg total) by mouth 1 (one) time each day. 12/24/19 25 Active clonazePAM (KlonoPIN) 0.5 mg tablet Take 1 tablet (0.5 mg total) by mouth 2 (two) times a day. Max Daily Amount: 1 mg 12/24/19 25 Active flaxseed oiL oil Act alec glucosamine-katelyn droitin 500-400 mg tablet Take 1 tablet by mouth 3 (three) times a day. Active magnesium, amino acid chelate, 133 mg tablet Take 1 tablet (133 mg total) by mouth 2 (two) times a day. Active B complex tablet Take 1 tablet by mouth 1 (one) time each day. Active Vitamin C tablet Take 1 tablet (100 mg total) by mouth 1 (one) time each day. Active cholecalciferol (VITAMIN D-3) 10 mcg (400 unit) tablet Take 1 tablet (400 Units total) by mouth 1 (one) time each day. Active vitamin E, dl,tocopheryl acet, (VITAMIN E, DL, ACETATE, ORAL) Apply topically. Active albuterol HFA (Ventolin HFA) 90 mcg/actuation inhaler Inhale 2 puffs by mouth every 6 (six) hours if needed for wheezing. Active plecanatide (TRULANCE) 3 mg tabletIndication s:Chronic idiopathic constipation Take 1 tablet (3 mg total) by mouth 1 (one) time each day. 30 each 02/01/20 25 025 Active levothyroxine (SYNTHROID, LEVOTHROID) 75 mcg tablet 1 TABLET DAILY 025 Discontinued Active Problems Problem Noted Date Diagnosed Date Asthma 10/17/2005 Hypothyroidism 10/17/2005 Hyperlipidemia 10/17/2005 Encounters Date Type Department Care Team Description 01/31/2025 2:00 PM EDT Office Visit Gastroenterology - [address] [place] [address] [address] Melissa Bunn MD Chronic idiopathic constipation (Primary Dx); Epigastric pain from Last 3 Months Surgical History Surgery Date Site/Laterality Comments SHOULDER [...] obstructive pu lmonary disease) case management [facility] [place]) Migraines Family History Medical History Relation Name Comments Colon cancer Father Heart attack Father Heart attack Mother Relation Name Status Comments Father Mother Social History Tobacco Use Types Packs/Day Years Used Date Smoking Tobacco: Former Cigarettes Tobacco Cessation:Counseling Given: Not Answered Alcohol Use Standard Drinks/Week Comments Not Currently [...] on file Not on file Obstetrics History Last Filed Vital Signs Vital Sign Reading Time Taken Comments Blood Pressure - - Pulse - - Temperature - - Respiratory Rate - - Oxygen Saturation - - Inhaled Oxygen Concentration - - Weight 59 kg (130 lb) 01/31/2025 1:48 PM EDT Height 149.9 cm (4' 11 ) 01/31/2025 1:48 PM EDT Body Mass Index 26.26 01/31/2025 1:48 PM EDT Plan of Treatment Health Maintenance Due Date Last Done Comments Breast Cancer Screening 1950 Diabetes: Annual GFR (Glomerular Filtration Rate) 1952 Diabetes: Annual Foot Exam 1962 Diabetes: Annual Retina Eye Exam 1962 Hepatitis A Vaccines (1 of 2 - Risk 2-dose series) 1971 Hepatitis B Vaccines (1 of 3 - Risk 3-dose series) 2012 RSV Immunization Adult Patients (1 - Risk 60-74 years 1-dose series) 2012 Zoster Vaccines (2 of 3) 01/07/2016 11/12/2015, 03/14 Cholesterol Screening (Lipid Panel) 09/13/2022 Colorectal Cancer Screening: Colonoscopy 09/13/2022 Depression Screening 09/13/2022 Falls Risk Assessment 09/13/2022 Hepatitis C Screening 09/13/2022 Osteoporosis Screening (Bone Density Screening) 09/13/2022 Social Influencers of Health Screening 09/13/2022 COVID-19 Vaccine ( season) 2024 08/28/2022, 10/30/2021, 02/08/2021, Additional history exists Diabetes: Annual Urine Albumin-Creatinine Ratio (uACR) 01/31/2025 Diabetes: Blood Sugar Control Test (HGBA1C) 01/31/2025 Hypertension/CHF/CAD Annual BMP Blood Test 01/31/2025 DTaP,Tdap,and Td Vaccines (4 - Td or Tdap) 02/05/2033 02/05/2023, 07/28/2013, 04/02/2010 Pneumococcal Vaccine: 50+ Years Completed 02/05/2023, 02/07/2019, 10/18/2017, Additional history exists Influenza Vaccine Completed 09/29/2024, , 08/02/2021, Additional history exists HIB Vaccines Aged Out No longer eligi [...] to complete this topic RSV Immunization Patients Under 20 months Aged Out No longer eligible based on patient's age to complete this topic Varicella Vaccines Aged Out No longer eligible based on patient's age to complete this topic Insurance [facility] Member Subscriber Plan / Payer (Ef fective 2019-Present) Name:Sarah Newby Relation to Subscriber:Self Name:Sarah Newby Payer ID:[id number] Group ID:[id number] Type:Not on file Address: [place] [address] [address] [phone] Care Teams Track Mechanic Relationship Specialty Start Date End Date Ankita Riley NP [facility] [address] [place] [address] PCP - General 01/09/23
--- OUTSIDE RECORDS SUMMARY | 2025-02-27 11:39 | XMS_ITS | Continuity of Care Document ---
Author Organization [facility] Address [address] [place] [address] Phone Care Team Providers Care Kennel Helper Name Role Phone Fransico Frost MD [...] INF INIT Simponi Aria OFFICE/OUTPATIENT VISIT EST [facility] 1 HR Simponi Aria OFFICE/[facility]PATIENT VISIT EST [facility] CHE[facility] INFUSION 1 HR [...] PROTEIN ASSAY OF CREATININE RBC SED RATE Bridgeportergren OFFICE/OUTPATIENT VISIT EST TB INTRADERMAL TEST ASSAY [...] Copied on Encounter [facility] [address], [address] [place] [address], tel:[phone] [facility] No Information 2 [facility] Cowart[facility]. [address] [place] [address], [id number] , [place]. tel:[phone] Referring Provider: Jimbo Bales, [address], [address] . tel:[phone] [facility] [address], [id number], tel:[phone] [facility] No Information 1 Margot Bateman. [address] [place] [address], [id number] , . tel:[phone] Referring Provider: Jimbo Bales, [address], [address] . tel:[phone] OFFICE/OUTPA TIENT VISIT EST [facility], [address] [place] [address], [address] [place] [address], tel:[phone] [facility] Rheumatoid Arthritis (chief complaint) Rheumatoid arthritis w/o rheumatoid factor, multiple sitesOth disrd of bone density and structure, multiple sitesOther meat carver (current) drug therapy 1 Karinachun Fransico. [facility] [place], [place], [address] [place] [address] , [place]. tel: [phone] Referring Provider: Jimbo Bales [address], [address] . tel:[phone] [facility], [address] [place] [address], [address] [place] [address], tel:[phone] [facility] No Information 0 Adalid Garcia. [address], [place], [place], [facility], [place]. tel:[phone] OFFICE/OUTPA TIENT VISIT EST [facility], [address] [place] [address], [address] [place] [address], tel:[phone] [facility] Rheumatoid Arthritis (chief complaint) Rheumatoid arthritis w/o rheumatoid factor, multiple sitesLow back painOth disrd of bone density and structure, multiple sitesOther longterm (current) drug therapy 0 Margot Bateman. [facility] [place], [place], [address] [place] [address] , [place]. tel: [phone] Referring Provider: Jimbo Bales, [address] , [place], [address] . tel:[phone] OFFICE/OUTPA TIENT VISIT EST [facility], [address] [place] [address], [address] [place] [address], [place] tel:[phone] [facility] Rheumatoid Arthritis (chief complaint) Rheumatoid arthritis w/o rheumatoid factor, multiple sitesLow back painOth disrd of bone density and structure, multiple sitesOther longterm (current) drug therapy 9 9 Margot Bateman. [facility] [place], [place], [address] [place] [address] , . tel: [phone] Referring Provider: Jimbo Bales, [address] , [place], [address] . tel:[phone] [facility], [address] [place] [address], [address] [place] [address], [place] tel:[phone] [facility] No Information 0 9 Margot Cowartdi. [address] [place] [address], [address] [place] [address] , [place]. tel: [phone] [facility], [address] [place] [address], [address] [place] [address], tel:[phone] [facility] No Information 9 Margot Bateman. [address] [place] [address], [address] [place] [address] , [place]. tel: [phone] Referring Provider: Jimbo Bales, [address], [address] . tel:[phone] OFFICE/OUTPA TIENT VISIT EST [facility], [address] [place] [address], [address] [place] [address], tel:[phone] [facility] Rheumatoid Arthritis (chief complaint) Rheumatoid arthritis w/o rheumatoid factor, multiple sitesLow back painOth disrd of bone density and structure, multiple sitesOther meat carver (current) drug therapy 9 [facility]. [address] [place] [address], [address] [place] [address] , [place]. tel: [phone] Referring Provider: Jimbo Bales, [address] [place] [address], [address] . tel:[phone] OFFICE/OUTPA TIENT VISIT EST [facility], [address] [place] [address], [address] [place] [address], tel:[phone] [facility] Rheumatoid Arthritis (chief complaint) Rheumatoid arthritis w/o rheumatoid factor, multiple sitesLow back painOth disrd of bone density and structure, multiple sitesOther longterm (current) drug therapy 0-201 9 [facility] Cow[facility]. [facility] [place], [address] [place] [address] , [place]. tel: [phone] Referring Provider: Jimbo Bales, [address], [address] . tel:[phone] OFFICE/OUTPA TIENT VISIT EST [facility] [address], [address] [place] [address], tel:[phone] [facility] Rheumatoid Arthritis (chief complaint) Rheumatoid arthritis w/o rheumatoid factor, multiple sitesLow back painOther meat carver (current) drug therapyOth disrd of bone density and structure, multiple sites 0 9 8 [facility] Fransico. [address] [place] [address], [address] [place] [address] , [place]. tel: [phone] Referring Provider: Jimbo Bales, [address], [address] . tel:[phone] OFFICE/OUTPA TIENT VISIT EST [facility], [address] [place] [address], [address] [place] [address], tel:[phone] [facility] Rheumatoid Arthritis (chief complaint) Rheumatoid arthritis w/o rheumatoid factor, multiple sitesLow back painOther meat carver (current) drug therapyOth disrd of bone density and structure, multiple sites 0 6201 8 [facility] Fransico. [address] [place] [address], [address] [place] [address] , [place]. tel: [phone] Referring Provider: Jimbo Bales, [address], [address] . tel:[phone] OFFICE/OUTPA TIENT VISIT EST [facility], [address] [place] [address], [address] [place] [address], tel:[phone] [facility] Psoriatic Arthritis (chief complaint) Rheumatoid arthritis w/o rheumatoid factor, multiple sitesLow back painOther longterm (current) drug therapyVitamin D deficiency, unspecified Nov-2 3 8 [facility]. [address] [place] [address], [address] [place] [address] , . tel: [phone] Referring Provider: Jimbo Bales, [address] [place] [address], [address] . tel:[phone] [facility], [address] [place] [address], [address] [place] [address], tel:[phone] [facility] Rheumatoid arthritis w/o rheumatoid factor, multiple sites May-0 8 7 [facility] Fransico. [address] [place] [address], [address] [place] [address] , . tel: [phone] OFFICE/OUTPA TIENT VISIT EST [facility], [address] [place] [address], [address] [place] [address], tel:[phone] [facility] reese ankle pain (chief complaint)b il knee pain (chief complaint)r ight hand pain (chief complaint) Rheumatoid arthritis w/o rheumatoid factor, multiple sitesPain in right kneeLow back painOther meat carver (current) drug therapy Dec-0 2 7 [facility] Fransico. [address] [place] [address], [address] [place] [address] , . tel: [phone] Referring Provider: Jimbo Bales, [address] [place] [address], [address] . tel:[phone] OFFICE/OUTPA TIENT VISIT EST [facility], [address] [place] [address], [address] [place] [address], tel:[phone] [facility] Rheumatoid Arthritis (chief complaint)S imponi ARIA 2mg/kg q8wks (chief complaint) Rheumatoid arthritis w/o rheumatoid factor, multiple sitesPain in right kneeLow back painOther longterm (current) drug therapy 6 Talai Fransico. [facility] [place], [id number] , [place]. tel:[phone] Referring Provider: Jimbo Bales, [address], [place], [address] . tel:[phone] OFFICE/OUTPA TIENT VISIT EST [facility], [address] [place] [address], [id number], [place] tel:[phone] [facility] Rheumatoid Arthritis (chief complaint)S Imponia Aria 2mg/kg every 8 weeks (chief complaint) Rheumatoid arthritis w/o rheumatoid factor, multiple sitesPain in right kneeLow back painOther longterm (current) drug therapyOther fatigue 6 Margot Bateman. [facility] [place], [id number] , [place]. tel:[phone] Referring Provider: Jimbo Bales, [address], [place], [address] . tel:[phone] [facility], [address] [place] [address], [id number], tel:[phone] [facility] No Information 6 Charli Warner. [address] [place], [place], [id number] . [phone] Referring Provider: Timmy Augustin, [facility] [place], [address] . tel:[phone] OFFICE/OUTPA TIENT VISIT EST [facility], [address] [place] [address], [id number], [place] tel:[phone] [facility] Rheumatoid Arthritis (chief complaint)S imponi ARIA 2mg/kg q8wks (chief complaint) Rheumatoid arthritis w/o rheumatoid factor, multiple sitesPain in right kneeLow back painOther meat carver (current) drug therapy 6 Karinaouri Fransico. [address] [place] [address], [address] [place] [address] , . tel:[phone] Referring Provider: Jimbo Bales, [address] [place] [address], [address] . tel:[phone] OFFICE/OUTPA TIENT VISIT EST [facility], [address] [place] [address], [address] [place] [address], tel:[phone] [facility] Rheumatoid Arthritis (chief complaint)S imponi ARIA 2mg/kg q8wks (chief complaint) Rheumatoid arthritis w/o rheumatoid factor, multiple sitesPain in right kneeOther meat carver (current) drug therapyLow back pain 6 Margot Cowartdi. [address] [place] [address], [address] [place] [address] , . tel: [phone] Referring Provider: Jimbo Bales, [address], [address] . tel:[phone] OFFICE/OUTPA TIENT VISIT EST [facility], [address] [place] [address], [address] [place] [address], tel:[phone] [facility] Rheumatoid Arthritis (chief complaint)s imponi aria 2mg/kg IV every 8 weeks (chief complaint) Rheumatoid arthritis w/o rheumatoid factor, multiple sitesPain in right kneeOther longterm (current) drug therapy 6 Margot Cowartdi. [address] [place] [address], [address] [place] [address] , [place]. tel:[phone] Referring Provider: Jimbo Bales, [address], [address] . tel:[phone] OFFICE/OUTPA TIENT VISIT EST [facility], [address] [place] [address], [address] [place] [address], [place] tel:[phone] [facility] Rheumatoid Arthritis (chief complaint)# 3 Simponi ARIA 2mg/kg q8wks (chief complaint) Rheumatoid arthritis w/o rheumatoid factor, multiple sitesPain in right kneeOther longterm (current) drug therapy 5 Karinachun Fransico. [address] [place] [address], [address] [place] [address] , . tel:[phone] Referring Provider: Jimbo Bales, [address], [address] . tel:[phone] OFFICE/OUTPA TIENT VISIT EST [facility], [address] [place] [address], [address] [place] [address], tel:[phone] [facility] Rheumatoid Arthritis (chief complaint)# 2 Simponi ARIA 2mg/kg (chief complaint) DyspepsiaRheumatoid arthritisOsteoarthr osis, unspecified whether generalized or localized, involving lower legLONG-TERM (CURRENT) USE OF STEROIDS Talayanique Fransico. [address] [place] [address], [address] [place] [address] , . tel: [phone] Referring Provider: Jimbo Bales, [address], [address] . tel:[phone] OFFICE/OUTPA TIENT VISIT EST [facility], [address] [place] [address], [id number], tel:[phone] [facility] Rheumatoid Arthritis (chief complaint)s imponi aria 2mg/kg IV . Dose #1 (chief complaint) Rheumatoid arthritisOsteoarthr osis, unspecified whether generalized or localized, involving lower legLONG-TERM (CURRENT) USE OF STEROIDSDyspepsia 0 5 Talayanique Fransico. [address] [place] [address], [address] [place] [address] , . tel:[phone] Referring Provider: Jimbo Bales, [address], [address] . tel:[phone] OFFICE/OUTPA TIENT VISIT EST [facility] [address], [id number], [place] tel:[phone] [facility] right knee pain (chief complaint) Rheumatoid arthritisLONG-TERM (CURRENT) USE OF STEROIDSOsteoarthro sis, unspecified whether generalized or localized, involving lower leg Jan-0 5 [facility] Fr[facility]. [facility] [place], [id number] , [place]. tel: [phone] Referring Provider: Jimbo Bales, [facility] [address], [address] . tel:[phone] OFFICE/OUTPA TIENT VISIT EST [facility], [address] [place] [address], [address] [place] [address], [place] tel:[phone] [facility] right knee pain and swollen (chief complaint) Rheumatoid arthritis 4 Margot Cowartdi. [facility] [place], [id number] , [place]. tel: [phone] Referring Provider: Jimbo Bales, [facility] [address], [address] . tel:[phone] OFFICE/OUTPA TIENT VISIT EST [facility], [facility] [place], [address] [place] [address], [place] tel:[phone] [facility] No Information 4 Margot Cowartdi. [facility] [place], [address] [place] [address] , [place]. tel: [phone] Referring Provider: Jimbo Bales, [facility] [address], [address] . tel:[phone] [facility], [facility] [place], [address] [place] [address], [place] tel:[phone] [facility] No Information 4 Adalid Garcia. [address], [place], [address], [place]. [phone] Referring Provider: Jimbo Bales, [address], [address] . tel:[phone] [facility] [address], [id number], tel:[phone] Myalgia and myositis, unspecified 3 Margot Bateman. [facility] [place], [id number] , . tel:[phone] [facility] [address], [id number], tel:[phone] LONG-TERM (CURRENT) USE OF STEROIDSLumbagoRheu matoid arthritis 3 Margot Bateman. [address] [place] [address], [id number] , . tel: [phone] Family History Family Member Type Diagnosis Age [...] Unspecified Payers Payer name Insurance type Covered alliance party ID Authoriza tiwilliams(s) Medicare MB [id number] [employer] CI [id number] Social History Type Description Quantity Date Captured [...] DEXA); axial skeleton (e.g., hips, pelvis, spine) (26486), Ordered on: Ordered Future Order: Radiology Order Liao nds Bilat (2 Or More Joints)(1 View) ([id number]), Ordered on: Ordered Future Order: Radiology Order Ch est X-ray; AP (2 View) ([id number]), Ordered on: Ordered Future Order: Radiology Order Truong ne density study (by DEXA); axial skeleton (e.g., hips, pelvis, spine) (03145), Ordered on: Ordered Future Order: Radiology Order Ch est X-ray; AP/Lat (2 views) ([id number]), Ordered on: Ordered Future Order: Radiology Order Liao nds Bilat (2 Or More Joints)(1 View) ([id number]), Ordered on: Ordered History Of Present Illness [...]
== END 2025-02-27 10:57 | disposition home or self-care (01) ==
LOC: HO.CT 10:56
PROVIDERS: PCP Nurse Practitioner Family; Visit Provider Internal Medicine Pulmonary Disease
DX: R91.8 Other nonspecific abnormal finding of lung field (principal)
CPT/HCPCS: 71250

== ENCOUNTER → 2025-02-27 10:58 | Outpatient (BNV) | payer OTHER, SELFPAY | PROVIDERS: PCP Nurse Practitioner Family; Visit Provider Radiology Diagnostic Radiology | DX: R91.1 Solitary pulmonary nodule (principal) | CPT/HCPCS: 71250 ==

== ENCOUNTER 2025-05-24 14:22 | Outpatient (AMB) | payer OTHER, SELFPAY ==
--- OUTSIDE RECORDS SUMMARY | 2022-02-09 20:00 | XMS_ITS | Continuity of Care Document ---
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 Role Phone Fransico Frost MD Unavailable Unavailable Allergies, Adverse Reactions, Alerts Substance Reaction Status Criticality PENICILLIN Active No Information Active No Information Medications Medication Instructions Dosage Effective Dates (start - stop) Status Comments METHOTREXATE 50 MG/2 ML VIAL INJECT 1ML SUBCUTANEOUSLY ONCE WEEKLY - Active Tuberculin Syringe 1 mL 25 gauge x 5/8 Use once weekly with Methotrexate injection - Active ropinirole 3 mg tablet take 1 tablet by oral route 2 times every day 3 MG - Active Percocet 7.5 mg-325 mg tablet take 1 tablet by oral route every 6 hours as needed for pain - Active omeprazole 40 mg capsule,delayed release take 1 capsule by oral route every day before a meal 40 MG - Active Effexor XR 37.5 mg capsule,extended release take 1 capsule by oral route every day with food 37.5 MG - Active Calcium 600 + D(3) 600 mg (1,500 mg)-400 unit tablet - Active gabapentin 100 mg capsule Takes one capsule by mouth three times a day - Active Soma 350 mg tablet take 1 tablet by ora l route 3 times every day and at bedtime 350 MG - Active Procedures Procedure Date No Show Fee No Show Fee RBC SED RATE Westergren C-REACTIVE PROTEIN COMPREHEN METABOLIC PANEL COMPLETE CBC W/AUTO DIFF WBC OFFICE/OUTPATIENT VISIT EST ROUTINE VENIPUNCTURE OFFICE/OUTPATIENT VISIT EST HAND BILAT SINGLE VIEW CHEST X-RAY 2 VIEWS ROUTINE VENIPUNCTURE RBC SED RATE Westergren C-REACTIVE PROTEIN COMPREHEN METABOLIC PANEL COMPLETE CBC W/AUTO DIFF WBC OFFICE/OUTPATIENT VISIT EST THER/PROPH/DIAG INJ SC/IM Triamcinolone acet inj ROUTINE VENIPUNCTURE COMPLETE CBC W/AUTO DIFF WBC COMPREHEN METABOLIC PANEL C-REACTIVE PROTEIN RBC SED RATE Westergren ROUTINE VENIPUNCTURE RBC SED RATE Westergren C-REACTIVE PROTEIN COMPREHEN METABOLIC PANEL COMPLETE CBC W/AUTO DIFF WBC OFFICE/OUTPATIENT VISIT EST ROUTINE VENIPUNCTURE COMPLETE CBC W/AUTO DIFF WBC RBC SED RATE Westergren OFFICE/OUTPATIENT VISIT EST THER/PROPH/DIAG INJ SC/IM Triamcinolone acet inj COMPLETE CBC W/AUTO DIFF WBC THER/PROPH/DIAG INJ SC/IM Triamcinolone acet inj OFFICE/OUTPATIENT VISIT EST ASSAY OF SERUM ALBUMIN ALANINE AMINO (ALT) (SGPT) TRANSFERASE (AST) (SGOT) ASSAY OF CALCIUM COMPLETE CBC W/AUTO DIFF WBC C-REACTIVE PROTEIN ASSAY OF CREATININE RBC SED RATE Westergren COMPLETE CBC W/AUTO DIFF WBC RBC SED RATE Westergren OFFICE/OUTPATIENT VISIT EST DXA BONE DENSITY AXIAL DXA BONE DENSITY AXIAL OFFICE/OUTPATIENT VISIT EST COMPLETE CBC W/AUTO DIFF WBC RBC SED RATE Westergren COMPLETE CBC W/AUTO DIFF WBC VITAMIN D 25 HYDROXY OFFICE/OUTPATIENT VISIT EST THER/PROPH/DIAG INJ SC/IM Methylprednisolone 80 MG inj OFFICE/OUTPATIENT VISIT EST HAND BILAT SINGLE VIEW CHEST X-RAY 2VW FRONTAL&LATL THER/PROPH/DIAG IV INF INIT Simponi Aria [facility] 1 HR Simponi Aria OFFICE/OUTPATIENT VISIT EST [facility]ria CHEMO IV INFUSION 1 HR Simponi Aria OFFICE/OUTPATIENT VISIT EST Simponi Aria CHEMO IV INFUSION 1 HR Simponi Aria OFFICE/OUTPATIENT VISIT EST Simponi Aria OFFICE/OUTPATIENT VISIT EST CHEMO IV INFUSION 1 HR Simponi Aria Simponi Aria OFFICE/OUTPATIENT VISIT EST CHEMO IV INFUSION 1 HR Simponi Aria Simponi Aria OFFICE/OUTPATIENT VISIT EST CHEMO IV INFUSION 1 HR Simponi Aria Simponi Aria CHEMO IV INFUSION 1 HR Simponi Aria OFFICE/OUTPATIENT VISIT EST Simponi Aria ASSAY OF SERUM ALBUMIN ALANINE AMINO (ALT) (SGPT) TRANSFERASE (AST) (SGOT) COMPLETE CBC W/AUTO DIFF WBC C-REACTIVE PROTEIN ASSAY OF CREATININE RBC SED RATE [place] OFFICE/OUTPATIENT VISIT EST TB INTRADERMAL TEST ASSAY OF SERUM ALBUMIN ALANINE AMINO (ALT) (SGPT) TRANSFERASE (AST) (SGOT) COMPLETE CBC W/AUTO DIFF WBC C-REACTIVE PROTEIN ASSAY OF CREATININE RBC SED RATE Westergren HEPATITIS B SURFACE AG EIA HEPATITIS C AB TEST THER/PROPH/DIAG INJ SC/IM Methylprednisolone 80 MG inj OFFICE/OUTPATIENT VISIT EST Methylprednisolone 80 MG inj OFFICE/OUTPATIENT VISIT EST Methylprednisolone 80 MG inj TB INTRADERMAL TEST DRAIN/INJECT JOINT/BURSA Triamcinolone acet inj NOS Advance Directives Directive Yes / No Effective Date File Name No Information Encounters Encounter Description Practice Location Reason(s) For Visit Diagnoses Date Provider Providers Copied on Encounter [facility] [address], [address] [place] [address], tel:[phone] [facility] No Information 2 [facility] [address] [place] [address], [id number] , [place]. tel:[phone] Referring Provider: Jimbo Bales, [address], [address] . tel:[phone] [facility] [address], [id number], tel:[phone] [facility] No Information 1 Margot Bateman. [address] [place] [address], [id number] , . tel:[phone] Referring Provider: Jimbo Bales, [address], [address] . tel:[phone] OFFICE/OUTPA TIENT VISIT EST [facility], [address] [place] [address], [address] [place] [address], tel:[phone] [facility] Rheumatoid Arthritis (chief complaint) Rheumatoid arthritis w/o rheumatoid factor, multiple sitesOth disrd of bone density and structure, multiple sitesOther intermodal customer service (current) drug therapy 1 Karinachun Fransico. [facility] [place], [place], [address] [place] [address] , [place]. tel: [phone] Referring Provider: Jimbo Bales [address], [address] . tel:[phone] [facility], [address] [place] [address], [address] [place] [address], tel:[phone] [facility] No Information 0 Adalid Garcia. [address], [place], [place], [facility], [place]. tel:[phone] OFFICE/OUTPA TIENT VISIT EST [facility], [address] [place] [address], [address] [place] [address], tel:[phone] [facility] Rheumatoid Arthritis (chief complaint) Rheumatoid arthritis w/o rheumatoid factor, multiple sitesLow back painOth disrd of bone density and structure, multiple sitesOther fci (current) drug therapy 0 Margot Bateman. [facility] [place], [address] [place] [address] , [place]. tel: [phone] Referring Provider: Jimbo Bales, [address] , [place], [address] . tel:[phone] OFFICE/OUTPA TIENT VISIT EST [facility], [address] [place] [address], [address] [place] [address], [place] tel:[phone] [facility] Rheumatoid Arthritis (chief complaint) Rheumatoid arthritis w/o rheumatoid factor, multiple sitesLow back painOth disrd of bone density and structure, multiple sitesOther intermodal customer service (current) drug therapy 9 9 Margot Bateman. [facility] [place], [address] [place] [address] , . tel: [phone] Referring Provider: Jimbo Bales, [address] , [place], [address] . tel:[phone] [facility], [address] [place] [address], [address] [place] [address], [place] tel:[phone] [facility] No Information 0 9 Margot Cowartdi. [address] [place] [address], [address] [place] [address] , [place]. tel: [phone] [facility], [address] [place] [address], [address] [place] [address], tel:[phone] [facility] No Information 9 Margot Bateman. [address] [place] [address], [address] [place] [address] , [place]. tel: [phone] Referring Provider: Jimbo Bales, [address], [address] . tel:[phone] OFFICE/OUTPA TIENT VISIT EST [facility], [address] [place] [address], [address] [place] [address], tel:[phone] [facility] Rheumatoid Arthritis (chief complaint) Rheumatoid arthritis w/o rheumatoid factor, multiple sitesLow back painOth disrd of bone density and structure, multiple sitesOther fci (current) drug therapy 9 [facility] [address] [place] [address], [address] [place] [address] , [place]. tel: [phone] Referring Provider: Jimbo Bales, [address] [place] [address], [address] . tel:[phone] OFFICE/OUTPA TIENT VISIT EST [facility], [address] [place] [address], [address] [place] [address], tel:[phone] [facility] Rheumatoid Arthritis (chief complaint) Rheumatoid arthritis w/o rheumatoid factor, multiple sitesLow back painOth disrd of bone density and structure, multiple sitesOther intermodal customer service (current) drug therapy 0-201 9 [facility] [place], [address] [place] [address] , [place]. tel: [phone] Referring Provider: Jimbo Bales, [address], [address] . tel:[phone] OFFICE/OUTPA TIENT VISIT EST [facility] [address], [address] [place] [address], tel:[phone] [facility] Rheumatoid Arthritis (chief complaint) Rheumatoid arthritis w/o rheumatoid factor, multiple sitesLow back painOther fci (current) drug therapyOth disrd of bone density and structure, multiple sites 0 9 8 [facility] Fransico. [address] [place] [address], [address] [place] [address] , [place]. tel: [phone] Referring Provider: Jimbo Bales, [address], [address] . tel:[phone] OFFICE/OUTPA TIENT VISIT EST [facility], [address] [place] [address], [address] [place] [address], tel:[phone] [facility] Rheumatoid Arthritis (chief complaint) Rheumatoid arthritis w/o rheumatoid factor, multiple sitesLow back painOther intermodal customer service (current) drug therapyOth disrd of bone density and structure, multiple sites 0 6201 8 [facility] Fransico. [address] [place] [address], [address] [place] [address] , [place]. tel: [phone] Referring Provider: Jimbo Bales, [address], [address] . tel:[phone] OFFICE/OUTPA TIENT VISIT EST [facility], [address] [place] [address], [address] [place] [address], tel:[phone] [facility] Psoriatic Arthritis (chief complaint) Rheumatoid arthritis w/o rheumatoid factor, multiple sitesLow back painOther intermodal customer service (current) drug therapyVitamin D deficiency, unspecified Nov-2 3 8 [facility] [address] [place] [address], [address] [place] [address] , . tel: [phone] Referring Provider: Jimbo Bales, [address] [place] [address], [address] . tel:[phone] [facility], [address] [place] [address], [address] [place] [address], tel:[phone] [facility] Rheumatoid arthritis w/o rheumatoid factor, multiple sites May-0 8 7 [facility] Fransico. [address] [place] [address], [address] [place] [address] , . tel: [phone] OFFICE/OUTPA TIENT VISIT EST [facility], [address] [place] [address], [address] [place] [address], tel:[phone] [facility] reese ankle pain (chief complaint)b il knee pain (chief complaint)r ight hand pain (chief complaint) Rheumatoid arthritis w/o rheumatoid factor, multiple sitesPain in right kneeLow back painOther intermodal customer service (current) drug therapy Dec-0 2 7 [facility] Fransico. [address] [place] [address], [address] [place] [address] , . tel: [phone] Referring Provider: Jimbo Bales, [address] [place] [address], [address] . tel:[phone] OFFICE/OUTPA TIENT VISIT EST [facility], [address] [place] [address], [address] [place] [address], tel:[phone] [facility] Rheumatoid Arthritis (chief complaint)S imponi ARIA 2mg/kg q8wks (chief complaint) Rheumatoid arthritis w/o rheumatoid factor, multiple sitesPain in right kneeLow back painOther intermodal customer service (current) drug therapy 6 Talai Fransico. [facility] [place], [id number] , [place]. tel:[phone] Referring Provider: Jimbo Bales, [address], [place], [address] . tel:[phone] OFFICE/OUTPA TIENT VISIT EST [facility], [address] [place] [address], [id number], [place] tel:[phone] [facility] Rheumatoid Arthritis (chief complaint)S Imponia Aria 2mg/kg every 8 weeks (chief complaint) Rheumatoid arthritis w/o rheumatoid factor, multiple sitesPain in right kneeLow back painOther intermodal customer service (current) drug therapyOther fatigue 6 Margot Bateman. [facility] [place], [id number] , [place]. tel:[phone] Referring Provider: Jimbo Bales, [address], [place], [address] . tel:[phone] [facility], [address] [place] [address], [id number], tel:[phone] [facility] No Information 6 Charli Warner. [address] [place], [place], [id number] . [phone] Referring Provider: Timmy Augustin, [facility] [place], [address] . tel:[phone] OFFICE/OUTPA TIENT VISIT EST [facility], [address] [place] [address], [id number], [place] tel:[phone] [facility] Rheumatoid Arthritis (chief complaint)S imponi ARIA 2mg/kg q8wks (chief complaint) Rheumatoid arthritis w/o rheumatoid factor, multiple sitesPain in right kneeLow back painOther fci (current) drug therapy 6 Karinaouri Fransico. [address] [place] [address], [address] [place] [address] , . tel:[phone] Referring Provider: Jimbo Bales, [address] [place] [address], [address] . tel:[phone] OFFICE/OUTPA TIENT VISIT EST [facility], [address] [place] [address], [address] [place] [address], tel:[phone] [facility] Rheumatoid Arthritis (chief complaint)S imponi ARIA 2mg/kg q8wks (chief complaint) Rheumatoid arthritis w/o rheumatoid factor, multiple sitesPain in right kneeOther intermodal customer service (current) drug therapyLow back pain 6 Margot Cowartdi. [address] [place] [address], [address] [place] [address] , . tel: [phone] Referring Provider: Jimbo Bales, [address], [address] . tel:[phone] OFFICE/OUTPA TIENT VISIT EST [facility], [address] [place] [address], [address] [place] [address], tel:[phone] [facility] Rheumatoid Arthritis (chief complaint)s imponi aria 2mg/kg IV every 8 weeks (chief complaint) Rheumatoid arthritis w/o rheumatoid factor, multiple sitesPain in right kneeOther intermodal customer service (current) drug therapy 6 Margot Cowartdi. [address] [place] [address], [address] [place] [address] , [place]. tel:[phone] Referring Provider: Jimbo Bales, [address], [address] . tel:[phone] OFFICE/OUTPA TIENT VISIT EST [facility], [address] [place] [address], [address] [place] [address], [place] tel:[phone] [facility] Rheumatoid Arthritis (chief complaint)# 3 Simponi ARIA 2mg/kg q8wks (chief complaint) Rheumatoid arthritis w/o rheumatoid factor, multiple sitesPain in right kneeOther intermodal customer service (current) drug therapy 5 Karinachun Fransico. [address] [place] [address], [address] [place] [address] , . tel:[phone] Referring Provider: Jimbo Bales, [address], [address] . tel:[phone] OFFICE/OUTPA TIENT VISIT EST [facility], [address] [place] [address], [address] [place] [address], tel:[phone] [facility] Rheumatoid Arthritis (chief complaint)# 2 Simponi ARIA 2mg/kg (chief complaint) DyspepsiaRheumatoid arthritisOsteoarthr osis, unspecified whether generalized or localized, involving lower legLONG-TERM (CURRENT) USE OF STEROIDS Talayanique Fransico. [address] [place] [address], [address] [place] [address] , . tel: [phone] Referring Provider: Jimbo Bales, [address], [address] . tel:[phone] OFFICE/OUTPA TIENT VISIT EST [facility], [address] [place] [address], [id number], tel:[phone] [facility] Rheumatoid Arthritis (chief complaint)s imponi aria 2mg/kg IV . Dose #1 (chief complaint) Rheumatoid arthritisOsteoarthr osis, unspecified whether generalized or localized, involving lower legLONG-TERM (CURRENT) USE OF STEROIDSDyspepsia 0 5 Talayanique Fransico. [address] [place] [address], [address] [place] [address] , . tel:[phone] Referring Provider: Jimbo Bales, [address], [address] . tel:[phone] OFFICE/OUTPA TIENT VISIT EST [facility] [address], [id number], [place] tel:[phone] [facility] right knee pain (chief complaint) Rheumatoid arthritisLONG-TERM (CURRENT) USE OF STEROIDSOsteoarthro sis, unspecified whether generalized or localized, involving lower leg Jan-0 5 [facility]. [facility] [address] [place], [id number] , [place]. tel: [phone] Referring Provider: Jimbo Bales, [facility] [address], [address] . tel:[phone] OFFICE/OUTPA TIENT VISIT EST [facility], [address] [place] [address], [address] [place] [address], [place] tel:[phone] [facility] right knee pain and swollen (chief complaint) Rheumatoid arthritis 4 Margot Cowartdi. [facility] [place], [id number] , [place]. tel: [phone] Referring Provider: Jimbo Bales, [facility] [address], [address] . tel:[phone] OFFICE/OUTPA TIENT VISIT EST [facility], [facility] [place], [address] [place] [address], [place] tel:[phone] [facility] No Information 4 Margot Cowartdi. [facility] [place], [address] [place] [address] , [place]. tel: [phone] Referring Provider: Jimbo Bales, [facility] [address], [address] . tel:[phone] [facility], [facility] [place], [address] [place] [address], [place] tel:[phone] [facility] No Information 4 Adalid Garcia. [address], [place], [address], [place]. [phone] Referring Provider: Jimbo Bales, [address], [address] . tel:[phone] [facility] [address], [id number], tel:[phone] Myalgia and myositis, unspecified 3 Margot Bateman. [facility] [address] [place], [id number] , . tel:[phone] [facility] [address], [id number], tel:[phone] LONG-TERM (CURRENT) USE OF STEROIDSLumbagoRheu matoid arthritis 3 Margot Bateman. [address] [place] [address], [id number] , . tel: [phone] Family History Family Member Type Diagnosis Age At Onset Father Problem (finding) Arthritis Father Problem (finding) Arthritis Problem (finding) Arthritis. NOS Mother Problem (finding) Arthritis Father Problem (finding) Immunizations Vaccine Date Status Comments Flu (split) (3 yrs or older) administered Note: Yes ; Source: Source Unspecified Pneumo (2 yrs or older)(PPV) administered Note: received ; Source: Source Unspecified Flu (split) (3 yrs or older) administered Note: received ; Source: Source Unspecified Payers Payer name Insurance type Covered republican ID Authoriza tiwilliams(s) Medicare MB [id number] [employer] CI [id number] Social History Type Description Quantity Date Captured Comments Sex Female Smoking Status No Information Chief Complaint And Reason For Visit No Information Reason For Referral Reason For Referral No Information Plan Of Treatment Date Type Action Status Goal Tobacco cessation counseling completed Goal Tobacco cessation counseling completed Goal Tobacco cessation counseling completed Goal Tobacco cessation counseling completed Goal Tobacco cessation counseling completed Goal Tobacco cessation counseling completed Goal Tobacco cessation counseling completed Referral Ordered: Chest X-ray; AP (2 View) ordered Referral Ordered: Administer ORENCIA 10mg/kg IV loading dose weeks 0, 2 and 4 weeks than every 4 weeks ordered Patient Education Rheumatoid Art hritis: Care Instructio~ completed Patient Education Rheumatoid Art hritis: Care Instructio~ completed Patient Education Rheumatoid Art hritis: Care Instructio~ completed Patient Education Rheumatoid Art hritis: Care Instructio~ completed Patient Education Rheumatoid Art hritis: Care Instructio~ completed Patient Education Rheumatoid Art hritis: Care Instructio~ completed Patient Education Rheumatoid Art hritis: Care Instruction completed Patient Education Psoriasis: Care Instruc tions completed Patient Education Rheumatoid Art hritis: After Your Visit completed Future Order: Radiology Order Truong ne density study (by DEXA); axial skeleton (e.g., hips, pelvis, spine) ([id number]), Ordered on: Ordered Future Order: Radiology Order Liao nds Bilat (2 Or More Joints)(1 View) ([id number]), Ordered on: Ordered Future Order: Radiology Order Ch est X-ray; AP (2 View) ([id number]), Ordered on: Ordered Future Order: Radiology Order Truong ne density study (by DEXA); axial skeleton (e.g., hips, pelvis, spine) ([id number]), Ordered on: Ordered Future Order: Radiology Order Ch est X-ray; AP/Lat (2 views) ([id number]), Ordered on: Ordered Future Order: Radiology Order Liao nds Bilat (2 Or More Joints)(1 View) ([id number]), Ordered on: Ordered History Of Present Illness Encounter Date Complaint History Of Prese nt Illness Rheumatoid Arthritis Rheumatoid Arthritis Rheumatoid Arthritis Rheumatoid Arthritis Rheumatoid Arthritis Rheumatoid Arthritis Rheumatoid Arthritis Psoriatic Arthritis reese ankle pain reese knee pain right hand pain Rheumatoid Arthritis Simponi ARIA 2mg/kg q8wks Rheumatoid Arthritis SImponia Aria 2mg/kg every 8 wee ks Simponi ARIA 2mg/kg q8wks Rheumatoid Arthritis Rheumatoid Arthritis Simponi ARIA 2mg/kg q8wks Rheumatoid Arthritis simponi aria 2mg/kg IV every 8 weeks #3 Simponi ARIA 2mg/kg q8wks Rheumatoid Arthritis Rheumatoid Arthritis #2 Simponi ARIA 2mg/kg simponi aria 2mg/kg IV . Dose #1 Rheumatoid Arthritis right knee pain right knee pain and swollen Joint and Muscle Pain A 62 year old female patient presents with Joint and Muscle Pain. Less swelling in hands and wrists.Pain and swelling in knees. Achy all over. Tolerating meds well.No fever, rash or shortness of breath. Functional Status Date Functional Assessmen t No Information Instructions Date Instruction Additional Infor mation No Information Assessments Type Assessment Date No Information Patient Care Teams Name Effective Dates (start - stop) Status Members No Information
[2025-05-24 14:30] VITALS: BP 122/62; PULSE 107; O2SAT 94; BMI 23.6
--- NOTE | 2025-05-24 14:30 | MHC.OFFVIS ---
Vital Signs 05/24/25 14:30 Height 4 ft 11 in Weight 117 lb BMI 23.6 BP 122/62 Blood Pressure Location Lt brachial Position Sitting Pulse 107 H Pulse Source Pulse Oximeter Pulse Oximetry (%) 94 Oxygen Delivery Method Nasal Cannula Oxygen Flow Rate 3 Intake Visit Reasons: copd Allergies gabapentin (GABAPENTIN) Allergy (Unknown, Verified 05/24/25 14:33) UNKNOWN mirtazapine Allergy (Unknown, Verified 05/24/25 14:33) Unknown penicillin G Allergy (Unknown, Verified 05/24/25 14:33) Unknown pravastatin Allergy (Unknown, Verified 05/24/25 14:33) Unknown quetiapine (Seroquel) Allergy (Unknown, Verified 05/24/25 14:33) Unknown HPI HPI copd: Details: 75-year-old lady, recent 55+ pack-year smoker, quit 2019, followed for underlying 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 She continues to use Trelegy albuterol MDI, theophylline 400, and duo nebs, and Ohtuvayre with reasonable control of her underlying symptoms, but slowly progressive. Her hyperventilation and anxiety related air trapping is better controlled on clonazepam. Her follow-up CT chest showed stable pulmonary nodules.? She denies recent exacerbations. Patient did try pulmonary rehab, however she is not particularly interested in continuation. [facility] Medical History (Updated 12/12/24 @ 15:30 by Mar Rojas MD) Pulmonary nodules Supplemental oxygen dependent Personal history of nicotine dependence Fibromyalgia High blood pressure Stomach problems Surgical History History of shoulder surgery H/O pelvic surgery Social History Household Members: Family Household Members Other:: Son Patient Tobacco Use Status: Former Tobacco user Years Smoked: 35 Substance Use Type: Marijuana service: No Current occupational status: retired Gender identity: Female Review of Systems Const Denies daytime sleepiness, Denies excessive sweating, Denies fatigue, Denies fever(s), Denies lethargy, Denies malaise, Denies night sweats, Denies snoring and Denies weight loss Eyes Denies blurry vision and Denies itchy eyes ENT Denies nasal congestion, Denies post nasal drip, Denies sinus pain, Denies sinus pressure and Denies other ( Thrush) Card Denies chest pain, Denies pedal edema, Denies dyspnea, Reports dyspnea on exertion, Denies orthopnea and Denies paroxysmal nocturnal dyspnea Resp Denies cough, Denies hemoptysis, Denies excessive phlegm production, Denies dyspnea, Reports dyspnea on exertion, Denies snoring and Denies wheezing GI Denies abdominal pain and Denies heartburn Musc Denies myalgias, Denies arthralgias and Denies joint swelling Skin/Breast Denies rash Neuro Denies memory loss and Denies seizure-like activity Psych Denies abnormal sleep pattern, Denies anxiety and Denies memory loss Endo Denies excessive sweating, Denies fatigue and Denies heat intolerance Clement/Lymph Denies easy bruising Aller/Immun Denies itchy eyes, Denies seasonal rhinorrhea and Denies wheezing Physical Exam Vital Signs: Last Vital Signs Pulse 107 H 05/24/25 14:30 BP 122/62 05/24/25 14:30 Pulse Ox 94 05/24/25 14:30 Oxygen Delivery Method Nasal Cannula 05/24/25 14:30 Oxygen Flow Rate 3 05/24/25 14:30 BMI result Body Mass Index 23.6 Const General: no acute distress and alert Nutritional Appearance: not obese Orientation/consciousness: Other orientation findings ( oriented) HEENT Head: Yes atraumatic Eyes General: appearance normal, both eyes and all related structures Sclerae: sclerae normal EOM: EOMs intact bilaterally Neck Neck: Yes supple Lymphatic: no lymphadenopathy noted Resp Effort & Inspection: normal respiratory effort and no use of accessory muscles Auscultation: clear to auscultation bilaterally Cardio Rate: regular rate Rhythm: regular rhythm Heart sounds: no gallops, no murmurs and no rubs Skin General skin exam: other ( warm) Extrem General: No clubbing, No cyanosis and No edema Assessment & Plan Assessment & Plan (1) Severe chronic obstructive pulmonary disease: Code(s): J44.9 - Chronic obstructive pulmonary disease, unspecified Category: Medical Plan: Slowly worsening control on essentially maximum inhaled/nebulized bronchodilators. Continue Trelegy, duo nebs, Ohtuvayre, theophylline. Will add daily prednisone 10 mg. (2) Supplemental oxygen dependent: Code(s): Z99.81 - Dependence on supplemental oxygen Category: Medical Plan: Continue supplemental oxygen to maintain O2 saturation of 89-93%. (3) Pulmonary air trapping: Code(s): R09.89 - Other specified symptoms and signs involving the circulatory and respiratory systems Category: Medical Plan: Reasonable control on twice a day as needed clonazepam. Continue current regimen. (4) Personal history of nicotine dependence: Comment: (former smoker - 55+PYH, quit 2019) Code(s): Z87.891 - Personal history of nicotine dependence Category: Medical Plan: Results of lung cancer screening CT chest reviewed, no worrisome nodules. Continue with lung cancer screening. Orders: Orders PFT pulmonary function test Today J44.9 - Chronic obstructive pulmonary disease, unspecified Medications: New prednisone 10 mg PO DAILY 30 tabs 6RF Refilled clonazepam (Klonopin) 0.5 mg PO BID 60 tabs 3RF J44.9 - Chronic obstructive pulmonary disease, unspecified Coding Level of Care Code Est Pt Level 4 (96723) Complex EM visit Add On G2211 Diagnoses Severe chronic obstructive pulmonary disease J44.9 Supplemental oxygen dependent Z99.81 Pulmonary air trapping R09.89 Personal history of nicotine dependence Z87.891
--- OUTSIDE RECORDS SUMMARY | 2025-05-24 14:37 | XMS_ITS | Patient Health Record ---
Author Organization [facility] Address [address] [place] [address] Care Team Providers Care Hybrid Corn Breeder Name Role Phone Ankita Riley Primary Care Provider Jacoby Lackey Unavailable [phone] Allergies Allergen (clinical drug ingredient) Drug/Non Drug [...] MG 1 tablet Orally O nce a day; Duration: 30 day(s) Active Physical Therapy . . . 2-3x/week; Duration: 3-4 weeks 01/01/2022 Active Pramipexole Dihydrochloride 0.5 MG 1 tablet Orally Once a day; Duration: 30 day(s) Active Night Splint AFO - [...] Problem Status W/U Status Risk Notes Problem Hallux valgus (acquired), left foot (M20.12) Active confirmed Plan Of Treatment Pending Test Test Name Order Date X ray : Foot, left 3V 01/01/2022 X ray : Foot, right 3V 01/01/2022 Insurance Providers Payer Name Payer Address Payer Phone Subscriber Number Group Number Insured Name Patient Relationship to Insured Coverage Start Date Coverage End Date [facility] [employer] Claims [address] [place] [address] [phone] [id number] Sarah Newby Self - patient is the insured Medical (General) History Medical History History ICD Code Anxiety Arthritis Back,Hip,and Knee pain Broken bones Depression Fibromyalgia Headaches/Migraines High blood pressure thyroid Measles Mumps Chicken pox Surgical History Surgery Date(Month/Year) Broken right Shoulder 2019 neck surgery 2020
--- OUTSIDE RECORDS SUMMARY | 2025-05-24 14:37 | XMS_ITS | Encounter Summary ---
Author Organization [employer] Address [address] [place] [address] Care Team Providers Care Engine Repairer Production Name Role Phone Unavailable Primary Care Provider Unavailabl e Encounter Details Date Type Department Care Team (Latest Contact Info) Description 02/25/2019 Abstract [facility] CONVERSIONS Dental, Provider, DDS Social History Tobacco [...]
--- OUTSIDE RECORDS SUMMARY | 2025-05-24 14:37 | XMS_ITS | Clinical Summary ---
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 4 Active amitriptyline (ELAVIL) 10 mg tablet Take 1 tablet (10 mg total) by mouth. at bedtime. 4 Active amLODIPine (NORVASC) 10 mg tablet 5 Active atorvastatin (LIPITOR) 80 mg tablet Take 1 tablet (80 mg total) by mouth every other day. 5 Active DULoxetine (CYMBALTA) [address] capsule Take 1 capsule (20 mg total) by mouth 1 (one) time each day. 5 Active Jardiance 10 mg tablet Take 1 tablet (10 mg total) by mouth 1 (one) time each day in the morning. 5 Active levothyroxine (SYNTHROID, LEVOTHROID) 150 mcg tablet Take 1 tablet (150 mcg total) by mouth 1 (one) time each day. 5 Active ondansetron (ZOFRAN) 4 mg tablet Take 1 tablet (4 mg total) by mouth every 6 (six) hours if needed. 4 Active pramipexole (MIRAPEX) 0.5 mg tablet Take 2 tablets (1 mg total) by mouth 2 (two) times a day. 5 Active pantoprazole (PROTONIX) 20 mg EC tablet Take 1 tablet (20 mg total) by mouth 1 (one) time each day. 5 Active theophylline (UNIPHYL) 400 mg 24 hr tablet Take 1 tablet (400 mg total) by mouth 1 (one) time each day. 5 Active Trelegy Ellipta 200-62.5-25 mcg inhaler Inhale 1 puff (200 mcg total) by mouth 1 (one) time each day. 5 Active clonazePAM (KlonoPIN) 0.5 mg tablet Take 1 tablet (0.5 mg total) by mouth 2 (two) times a day. 5 Active flaxseed oiL oil Act alec glucosamine-chond roitin 500-400 mg tablet Take 1 tablet by [...] (six) hours if needed for wheezing. Active Ohtuvayre 3 mg/2.5 mL suspension for nebulization 5 Active lisinopriL (PRINIVIL,ZESTRIL ) 2.5 mg tablet Take 1 tablet (2.5 mg total) by mouth 1 (one) time each day. Active plecanatide (Trulance) 3 mg tablet Take 1 tablet (3 mg total) by mouth 1 (one) time each day. Active predniSONE (DELTASONE) 20 mg tablet Take 2 tablets (40 mg total) by mouth 1 (one) time each day. Active nitrofurantoin, macrocrystal-mono hydrate, (MACROBID) 100 mg capsule Take 1 capsule (100 mg total) by mouth 2 (two) times a day. Active Active Problems Problem Noted Date Diagnosed Date Trigger finger 03/31/2025 Overview (03/31/2025): left thumb;monitor Bursitis of hip 03/31/2025 Carotid stenosis 03/31/2025 Carpal tunnel syndrome 03/31/2025 Cervical disc disorder with radiculopathy 2024 Disorder of rotator cuff 03/31/2025 Overview (03/31/2025): ac srthritis per [facility] Essential tremor 03/31/2025 Female stress incontinence 03/31/2025 History of abdominal hysterectomy 03/31/2025 Irritable bowel syndrome (IBS) 03/31/2025 Leukocytosis 03/31/2025 Migraine headache 03/31/2025 Overview (03/31/2025): had MRI as noted Multinodular goiter 03/31/2025 Overview (03/31/2025): Impression: Heterogeneously nodular and mildly asymmetrically atrophic thyroid gland without a dominant mass. refer sono Nonadherence to medication 03/31/2025 Pelvic mass 03/31/2025 Persistent insomnia 03/31/2025 Overview (03/31/2025): neg SAY eval Benign essential hypertension 12/30/2024 Dependence on supplemental oxygen 12/30/2024 GERD without esophagitis 12/30/2024 Hepatic steatosis 12/30/2024 Multiple pulmonary nodules 12/30/2024 Osteopenia 12/30/2024 Peripheral vascular disease (CMS/HCC V24) 2024 Recurrent major depressive disorder (CMS/HCC V24 ) 12/30/2024 Tachycardia 12/30/2024 Type 2 diabetes mellitus ([facility] V24, [facility] V 28) 12/30/2024 Vitamin B12 deficiency 12/30/2024 Overview (03/31/2025): neg TTG IGA IM B12 to start Vitamin D deficiency 12/30/2024 Chronic obstructive pulmonar y disease ([facility] V24, [facility] V28) 10/03/2014 Overview (03/31/2025): correction fev1 42% fev1 69% fev1 42% Moderate obstructive defect. The vital capacity is reduced, probably due to obstructive defect noted. Good response to bronchodilator. The MVV is consistent with the level of FEV1. Lung volumes are increased. The specific conductance is moderately reduced. The diffusing capacity is moderately reduced. These findings are consistent with a diagnosis of COPD. Osteopenia 12/08/2013 Overview (03/31/2025): frax 7.0/0.4 AP Spine (L1 L2 L4) 0.819 -2.0 -0.3 Osteopenic Femoral Neck (Right) 0.753 -0.9 0.6 Normal Total Hip (Right) 0.932 -0.1 1.1 Normal neg 1.2 spine frax 6.6/0.2 Fibromyalgia 07/25/2009 Overview (03/31/2025): rheumatology confirms; defers rx to me possible ;refer rheumatology Restless legs syndrome 07/25/2009 Overview (03/31/2025): jhecking ferritin Asthma 10/17/2005 Hypothyroidism 10/17/2005 Hyperlipidemia 10/17/2005 Encounters Date Type Department Care Team Description 04/12/2025 Telephone Gastroenterology - [address] [place] [address] Sofie Bee PA 04/03/2025 Telephone Gastroenterology - [address] [place] [phone] Sofie Bee PA 03/31/2025 11:46 AM EDT - 03/31/2025 11:59 PM EDT Hospital Encounter [facility] Xray [address] [place] [address] Chronic idiopathic constipation Discharge Disposition: Home or Self Care 03/31/2025 11:20 AM EDT Office Visit Gastroenterology - [address] [facility] [address] [place] [id number] Sofie Bee PA Chronic idiopathic constipation (Primary Dx); Hemorrhoids, unspecified hemorrhoid type; Full incontinence of feces from Last 3 Months Immunizations Name Administration Dates Next Due Influenza Quadravalent, 0.5m l (Fluzone High-dose) 65yo and older 07/31/2022,08/02/2021,07/02/2020 Influenza Whole 07/02/2020,,09/01/2014,07/20,07/16/2011,08/22/2010,06/26/2009 Influenza trivalent, 0.5mL ( Fluzone High-dose) 65yo and older 06/20/2019,07/27/2018,06/29/2017 Influenza trivalent, 0.5mL, preservative free (Fluarix; FluLaval; Fluzone) ages 6mo and older (Afluria) 3 years and older 09/10/2016 Influenza trivalent, with pr eservative (Fluzone; Afluria) 6mo and older 09/29/2024,07/27/2018,06/29/2017,09/03,07/11/2015,07/28/2013 Pneumococcal conjugate 13 va lent (Prevnar 13, PCV13) 2mo and older 10/18/2017,10/18/2017,06/29/2017 Pneumococcal conjugate 20 va lent (Prevnar 20, PCV 20) 2mo and older 02/05/2023 Pneumococcal polysaccharide 23 valent (Pneumovax 23) 2yo and older 02/07/2019,02/07/2019,10/12/2005 Td Tetanus diptheria (Tdvax) 7yo and older 02/05/2023 Tdap Tetanus diptheria acell ular pertussis (Boostrix; Adacel) 7yo and older 07/28/2013,04/02/2010 Tetanus Toxoid, Unspecified 10/12/2000 Zoster Live 11/12/2015,04/10/2015 Surgical History Surgery Date Site/Laterality Comments SHOULDER [...] obstructive pu lmonary disease) case management patient ([facility] V24, [facility] V28) Migraines Family History Medical History Relation [...] - Inhaled Oxygen Concentration - - Weight 56.2 kg (124 lb) 03/31/2025 11:10 AM EDT Height 149.9 cm (4' 11 ) 03/31/2025 11:10 AM EDT Body Mass Index 25.04 03/31/2025 11:10 AM EDT Plan of Treatment Health Maintenance [...] Panel) 09/13/2022 Colorectal Cancer Screening: Colonoscopy 09/13/2022 Falls Risk Assessment 09/13/2022 Hepatitis C Screening 09/13/2022 Osteoporosis Screening (Bone Density Screening) 09/13/2022 Social Influencers of Health Screening 09/13/2022 COVID-19 Vaccine ( season) 2024 08/28/2022, 10/30/2021, 02/08/2021, Additional history exists Depression Screening 10/12/2024 Diabetes: Annual Urine Albumin-Creatinine Ratio (uACR) 01/31/2025 Diabetes: Blood Sugar Control Test (HGBA1C) 01/31/2025 Hypertension/CHF/CAD Annual BMP Blood Test 01/31/2025 Influenza Vaccine (#1) 2025 , 07/31/2022, 08/02/2021, Additional history exists DTaP,Tdap,and Td Vaccines (4 - Td or Tdap) 02/05/2033 02/05/2023, 07/28/2013, 04/02/2010 Pneumococcal Vaccine: 50+ Years Completed 02/05/2023, 02/07/2019, 02/07/2019, Additional history exists HIB Vaccines Aged Out [...] on patient's age to complete this topic Procedures Procedure Name Priority Date/Time Associated Diagnosis Comments XR ABDOMEN 1 VIEW Routine 03/31/2025 11: 59 AM EDT Chronic idiopathic constipation from Last 3 Months Results * XR Abdomen 1 View (03/31/2025 11:59 AM EDT) Anatomical Region Laterality Modality Body Radiographic Leilani ging 03/31/2025 12:1 8 PM EDT Impressions 03/31/2025 12:20 PM EDT Nonobstructive bowel gas pattern. A 1.1 cm oval calcification has developed in the left mid abdomen since the prior study of 06/27/2022, appearing not to be within the kidney. Follow-up abdominal radiograph in 6-8 weeks is recommended; should this calcification persist, more precise localization with CT scan of the abdomen could then be considered. Code 69710 -------- FINAL REPORT -------- Dictated By: Adriano Bradshaw Dictated Date: 03/31/2025 12:18 ET Assigned Physician: Adriano Bradshaw Reviewed and Electronically Signed By: Adriano Bradshaw Signed Date: 03/31/2025 12:20 ET Workstation ID: [id number] Transcribed By: Self Edit Transcribed Date: 03/31/2025 12:18 ET Narrative 03/31/2025 12:20 PM EDT HISTORY: The patient is a 75-year-old female with constipation and fecal incontinence. FINDINGS: Supine radiographs of the abdomen demonstrate levoscoliosis of the lumbar spine as also seen on the prior study performed 06/27/2022. Again seen is evidence of calcific tendinitis of the left hip. The bowel gas pattern is nonobstructive. The volume of fecal material is not unusually increased. No mass is demonstrated. New since the prior study is a 1.1 cm diameter oval calcification in the left mid abdomen, appearing to be not within the kidney. Procedure Note Adriano Bradshaw MD - 03/31/2025 HISTORY: The patient is a 75-year-old female with constipation and fecalincontinence. FINDINGS: Supine radiographs of the abdomen demonstrate levoscoliosis ofthe lumbar spine as also seen on the prior study performed 06/27/2022.Again seen is evidence of calcific tendinitis of the left hip. The bowelgas pattern is nonobstructive. The volume of fecal material is notunusually increased. No mass is demonstrated. New since the prior studyis a 1.1 cm diameter oval calcification in the left mid abdomen, appearingto be not within the kidney. IMPRESSION: Nonobstructive bowel gas pattern. A 1.1 cm oval calcification hasdeveloped in the left mid abdomen since the prior study of 06/27/2022,appearing not to be within the kidney. Follow-up abdominal radiograph in6-8 weeks is recommended; should this calcification persist, more preciselocalization with CT scan of the abdomen could then be considered. Code 43288 -------- FINAL REPORT -------- Dictated By: Adriano Bradshaw Dictated Date: 03/31/2025 12:18 ET Assigned Physician: Adriano Bradshaw Reviewed and Electronically Signed By: Adriano Bradshaw Signed Date: 03/31/2025 12:20 ET Workstation ID: [id number] Transcribed By: Self Edit Transcribed Date: 03/31/2025 12:18 ET Sofie KELSEY IMG XR PROCEDURES Final Resu lt from Last 3 Months Insurance [facility] Member Subscriber Plan / Payer (Ef fective 2019-Present) Name:Sarah Newby Relation to Subscriber:Self Name:Sarah Newby Payer ID:[id number] Group ID:[id number] Type:Not on file Address: [place] [address] [place] [address] Care Teams 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
== END 2025-05-24 14:55 | disposition home or self-care (01) ==
LOC: HO.HPS 14:22
PROVIDERS: PCP Nurse Practitioner Family; Visit Provider Internal Medicine Pulmonary Disease
DX: J44.9 Chronic obstructive pulmonary disease, unspecified (principal); Z99.81 Dependence on supplemental oxygen; R09.89 Other specified symptoms and signs involving the circulatory and respiratory systems; Z87.891 Personal history of nicotine dependence
CPT/HCPCS: 99214; G2211

== ENCOUNTER → 2025-05-24 14:22 | Outpatient (BNVA) | payer OTHER, SELFPAY | PROVIDERS: PCP Nurse Practitioner Family; Visit Provider Internal Medicine Pulmonary Disease | DX: J44.9 Chronic obstructive pulmonary disease, unspecified (principal); Z99.81 Dependence on supplemental oxygen; R09.89 Other specified symptoms and signs involving the circulatory and respiratory systems; Z87.891 Personal history of nicotine dependence | CPT/HCPCS: 99212 ==